=== PATIENT | female | born 1990 | race Caucasian/White ===

== ENCOUNTER 2016-11-19 10:34 | Inpatient (IN) | payer OTHER ==
[2016-11-19] MEDS ORDERED: Oxytocin/Lactated Ringers 10 UNIT/1,000 ML BAG IV SCH ×2 (11:45)
[2016-11-19] MEDS: Lactated Ringers 1,000 ML IV SCH ×2 (12:07→16:18)
--- NOTE | 2016-11-19 12:28 | PCM.LDHP ---
L&D History of Present Illness - General Date of Service: 11/19/16 Admit Problem/Dx: Patient Status Order with Admit Dx/Problem 11/19/16 10:46 Patient Status [ADT] Routine 11/19/16 11:32 Patient Status [ADT] Routine Admission Diagnosis/Problem Admission Diagnosis/Problem Source of Information: Patient History Limitations: Reports: No limitations - History of Present Illness Introduction:: 26-year-old, G. 14, P1-2-10 (including one ectopic)-2 . JOSE 12/03/2016 at estimated gestational age of 38 weeks zero days. History of gush of fluid or leaking fluid since 2230 hours on 11/18/2016 . GBS negative. Patient presented to labor and delivery for evaluation, and nature was positive for back ruptured at 1220 on 11/19/2016 at that time. Cervix 3 cm, 80% effaced, posterior, soft, zero station. Clear amnionic fluid. heart tones category one Location, : Reports: Abdomen, Lower back Quality: Reports: Dull Improves with: Reports: None Worsens with: Reports: None Associated Symptoms: Reports: N - Related Data Allergies/Adverse Reactions: Allergies Allergy/AdvReac Type Severity Reaction Status Date / Time codeine AdvReac Seizure Verified 11/19/16 11:37 hydrocodone [From Vicodin] AdvReac Seizure Verified 11/19/16 11:37 promethazine [From Phenergan] AdvReac Seizure Verified 11/19/16 11:37 Home Medications: Home Meds PNV95/Ferrous Fumarate/FA [ Tablet] 1 tab PO DAILY 11/19/16 [History] Past Medical History : 14 Para: 1 (07/23/09) H&P Review of Systems - Review of Systems: Review Of Systems: See Below General: Reports: no symptoms HEENT: Reports: no symptoms Pulmonary: Reports: No Symptoms Cardiovascular: Reports: no symptoms Gastrointestinal: Reports: No symptoms Genitourinary: Reports: no symptoms Musculoskeletal: Reports: no symptoms Skin: Reports: no symptoms Psychiatric: Reports: no symptoms Neurological: Reports: No Symptoms Hematologic/Lymphatic: Reports: no symptoms Immunologic: Reports: no symptoms L&D Exam - Exam Exam: See Below - Vital Signs Vital Signs: Last Vital Signs Temp 98.7 F 11/19/16 10:46 Pulse 87 11/19/16 10:46 Resp 20 11/19/16 10:46 BP 133/84 11/19/16 10:46 Pulse Ox Weight: 182 lb 6 oz - OB Specific Contraction Intensity: Mild (of the) movement: active heart tones: present heart tones per min: 135 Heart Rate (FHR) Variability: Moderate (6-25 bmp) Presentation: Vertex - Lee Score Lee Score Cervix Position: Posterior Lee Score Consistency: Soft Lee Score Effacement: >80% Lee Score Dilation: 3-4 cm Lee Score Infant's Station: -1 ,0 Lee Score Total: 9 - Exam General: alert, oriented HEENT: Hearing intact Neck: supple, trachea midline Lungs: Clear to auscultation, Normal respiratory effort Cardiovascular: regular rate, regular rhythm Abdomen: normal bowel sounds, soft Genitourinary: Normal external exam Extremities: normal inspection Skin: warm, dry, intact Psychiatric: alert, normal affect, normal mood - Patient Data Lab Results last 24 hrs: Laboratory Results - last 24 hr 11/19/16 11/19/16 Range/Units 10:55 11:45 WBC 15.70 H (3.98-10.04) K/mm3 RBC 3.74 L (3.98-5.22) M/mm3 Hgb 12.1 (11.2-15.7) gm/L Hct 36.1 (34.1-44.9) % MCV 96.5 H (79.4-94.8) fl MCH 32.4 H (25.6-32.2) pg MCHC 33.5 (32.2-35.5) g/dl RDW Std Deviation 44.9 (36.4-46.3) fL Plt Count 329 (182-369) K/mm3 MPV 10.0 (9.4-12.3) fl Membrane Rupture Positive H Result Diagrams: 11/19/16 11:45 - Problem List (1) 38 weeks gestation of SNOMED Code(s): 60011379 ICD Code: Z3A.38 - 38 WEEKS GESTATION OF Status: Acute Current Visit: Yes (2) Premature rupture of membranes SNOMED Code(s): 02829641 ICD Code: O42.90 - AMANDA ROM, 7TH0 BETW RUPT & ONST LABR, UNSP WEEKS OF GEST Status: Acute Current Visit: Yes Qualifiers: PROM onset of labor timing: onset of labor within 24 hours of rupture PROM gestational age: full term Qualified Code(s): O42.02 - Full-term premature rupture of membranes, onset of labor within 24 hours of rupture Problem List Initiated/Reviewed/Updated: No Orders Last 24hrs: Active Orders 24 hr Category Date Time Status Patient Status [ADT] Routine ADT 11/19/16 10:46 Active Patient Status [ADT] Routine ADT 11/19/16 11:32 Active Activity as Tolerated [RC] PFP Care 11/19/16 11:31 Active Communication Order [RC] ASDIRECTED Care 11/19/16 11:31 Active Non Stress Test [RC] PER UNIT ROUTINE Care 11/19/16 10:46 Active Notify Provider [RC] PFP Care 11/19/16 11:31 Active Notify Provider [RC] PRN Care 11/19/16 11:31 Active Vital Signs [RC] PER UNIT ROUTINE Care 11/19/16 10:46 Active Vital Signs [RC] PER UNIT ROUTINE Care 11/19/16 11:31 Active Clear Liquid Diet [DIET] Diet 11/19/16 Lunch Active TYPE AND SCREEN [BBK] Stat Lab 11/19/16 12:22 Ordered Lactated Ringers [Ringers, Lactated] 1,000 ml Med 11/19/16 11:45 Active IV ASDIRECTED Oxytocin/Lactated Ringers [Pitocin in LR 10 Units/1,000 Med 11/19/16 11:45 Active ML] 10 unit in 1,000 ml IV TITRATE Oxytocin/Lactated Ringers [Pitocin in LR 10 Units/1,000 Med 11/19/16 11:45 Active ML] 10 unit in 1,000 ml IV TITRATE PNV95/Ferrous Fumarate/FA [ Tablet] Med 11/20/16 09:00 Ordered 1 tab PO DAILY Electronic Heart Tones Ext w TOCO [WOMSER] Oth 11/19/16 11:31 Ordered Routine Electronic Heart Tones Internal [WOMSER] Per Unit Oth 11/19/16 11:31 Ordered Routine Peripheral IV Insertion Adult [OM.PC] Routine Oth 11/19/16 11:31 Ordered Resuscitation Status Routine Resus Stat 11/19/16 10:45 Ordered Medication Orders Lactated Ringer's (Ringers, Lactated) 1,000 mls @ 100 mls/hr IV ASDIRECTED DEBORAH Last Admin: 11/19/16 12:07 Dose: 100 mls/hr Oxytocin/Lactated Ringer's (Pitocin In Lr 10 Units/1,000 Ml) 10 unit in 1,000 mls @ 500 mls/hr IV TITRATE DEBORAH Oxytocin/Lactated Ringer's (Pitocin In Lr 10 Units/1,000 Ml) 10 unit in 1,000 mls @ 12 mls/hr IV TITRATE DEBORAH; 2 MUNITS/MIN PRN Reason: Protocol Last Admin: 11/19/16 12:08 Dose: 2 munits/min, 12 mls/hr Non-Formulary Medication (Pnv95/Ferrous Fumarate/Fa [ Tablet]) 1 tab PO DAILY DEBORAH
--- NOTE | 2016-11-19 14:22 | PCM.SN ---
- Free Text/Narrative Note: Cervix /soft/posterior/vtx 0/+1 Cat I FHR.
[2016-11-19] MEDS ORDERED: ePHEDrine 50 MG/ML SDV IVPUSH PRN (15:59)
[2016-11-19] MEDS ORDERED: diphenhydrAMINE 50 MG/ML SDV IVPUSH PRN (15:59)
[2016-11-19] MEDS ORDERED: fentaNYL 100 MCG/2 ML SDV EPIDUR PRN (15:59)
[2016-11-19] MEDS ORDERED: Bupivacaine/fentaNYL/NS 100 ML Bag EPIDUR SCH (16:00)
--- NOTE | 2016-11-19 16:27 | PCM.PREANE ---
Preanesthetic Assessment - Anesthesia/Transfusion/Family Hx Anesthesia History: Prior Anesthesia Without Reaction Family History of Anesthesia Reaction: No Transfusion History: No Prior Transfusion(s) - Review of Systems General: No Symptoms Pulmonary: No Symptoms Cardiovascular: No Symptoms Gastrointestinal: No symptoms Neurological: No Symptoms, Seizure (2005-grand mal -allergic reaction to meds) Other: Reports: None, Anxiety (usually on zoloft) - Physical Assessment O2 Sat by Pulse Oximetry: 100 Respiratory Rate: 20 Vital Signs: Last Vital Signs Temp 98.7 F 11/19/16 10:46 Pulse 87 11/19/16 10:46 Resp 20 11/19/16 10:46 BP 133/84 11/19/16 10:46 Pulse Ox Height: 6 ft Weight: 82.724 kg ASA Class: 2 Mental Status: Alert & Oriented x3 Airway Class: Mallampati = 1 Dentition: Reports: Normal Dentition Thyro-Mental Finger Breadths: 3 Mouth Opening Finger Breadths: 3 ROM/Head Extension: Full Lungs: Clear to auscultation, Normal respiratory effort Cardiovascular: Regular Rate, Regular Rhythm, No Murmurs - Lab Values: Laboratory Last Values WBC 15.70 K/mm3 (3.98-10.04) H 11/19/16 11:45 RBC 3.74 M/mm3 (3.98-5.22) L 11/19/16 11:45 Hgb 12.1 gm/L (11.2-15.7) 11/19/16 11:45 Hct 36.1 % (34.1-44.9) 11/19/16 11:45 MCV 96.5 fl (79.4-94.8) H 11/19/16 11:45 MCH 32.4 pg (25.6-32.2) H 11/19/16 11:45 MCHC 33.5 g/dl (32.2-35.5) 11/19/16 11:45 RDW Std Deviation 44.9 fL (36.4-46.3) 11/19/16 11:45 Plt Count 329 K/mm3 (182-369) 11/19/16 11:45 MPV 10.0 fl (9.4-12.3) 11/19/16 11:45 Membrane Rupture Positive H 11/19/16 10:55 Blood Type A POSITIVE 11/19/16 11:45 Gel Antibody Screen Negative 11/19/16 11:45 - Allergies Allergies/Adverse Reactions: Allergies Allergy/AdvReac Type Severity Reaction Status Date / Time codeine AdvReac Seizure Verified 11/19/16 11:37 hydrocodone [From Vicodin] AdvReac Seizure Verified 11/19/16 11:37 promethazine [From Phenergan] AdvReac Seizure Verified 11/19/16 11:37 - Blood Blood Available: No - Acknowledgements Anesthesia Type Planned: Epidural Pt an Appropriate Candidate for the Planned Anesthesia: Yes Alternatives and Risks of Anesthesia Discussed w Pt/Guardian: Yes Pt/Guardian Understands and Agrees with Anesthesia Plan: Yes PreAnesthesia Questionnaire Cardiovascular History: Reports: Other (see below) Other Cardiovascular History: SVT Respiratory History: Reports: Asthma (meds years ago- golf course [employer] indused) Gastrointestinal History: Reports: GERD, Other (see below) Other Gastrointestinal History: ulcer [employer] History: Reports: Ectopic , , Spontaneous , Other (see below) : 14 (39 weeks) Para: 2 Other OB/BYN History: spontaneous AB X10. History of PTL Neurological History: Reports: Headaches, chronic Psychiatric History: Reports: Anxiety, Depression Endocrine/Metabolic History: Reports: Hyperthyroidism - SUBSTANCE USE Smoking Status *Q: Current Every Day Smoker Tobacco Use Within Last Twelve Months: Cigarettes Second Hand Smoke Exposure: Yes Days Per Week of Alcohol Use: 0 Recreational Drug Use History: No - HOME MEDS Home Medications: Home Meds PNV95/Ferrous Fumarate/FA [ Tablet] 1 tab PO DAILY 11/19/16 [History] - CURRENT (IN HOUSE) MEDS Current Meds: Current Medications Diphenhydramine HCl (Benadryl) 25 mg IVPUSH Q6H PRN PRN Reason: pruritis Ephedrine Sulfate (Ephedrine Sulfate) 5 mg IVPUSH ASDIRECTED PRN PRN Reason: Hypotension Fentanyl (Sublimaze) 100 mcg EPIDUR Q3H PRN PRN Reason: Pain Last Admin: 11/19/16 16:21 Dose: 100 mcg Fentanyl/Bupivacaine HCl (Fentanyl/Bupivacaine/Ns 2 Mcg-0.125% 100 Ml) 100 ml EPIDUR ASDIRECTED DEBORAH Last Admin: 11/19/16 16:22 Dose: 100 ml Lactated Ringer's (Ringers, Lactated) 1,000 mls @ 100 mls/hr IV ASDIRECTED DEBORAH Last Admin: 11/19/16 16:18 Dose: 100 mls/hr Oxytocin/Lactated Ringer's (Pitocin In Lr 10 Units/1,000 Ml) 10 unit in 1,000 mls @ 500 mls/hr IV TITRATE DEBORAH Oxytocin/Lactated Ringer's (Pitocin In Lr 10 Units/1,000 Ml) 10 unit in 1,000 mls @ 12 mls/hr IV TITRATE DEBORAH; 2 MUNITS/MIN PRN Reason: Protocol Last Admin: 11/19/16 12:08 Dose: 2 munits/min, 12 mls/hr Prenat Multivit/[employer] Specialist/Iron/Folic Ac ( Plus Iron) 1 each PO BEDTIME DEBORAH
--- NOTE | 2016-11-19 17:24 | PCM.DEL ---
L & D Note - General Info Date of Service: 11/19/16 Mother's Due Date: 12/03/16 - Delivery Note Labor: spontaneous, augmented by ARM (Rupture of fore bag, clear fluid), augmented by oxytocin Delivery Outcome: Livebirth (Male live born, Saturday11/19/2018, at 1707 hours, RADHA. Nuchal cord x2 loose, weight 3110 g/6 pounds, 13.7 ounces, Apgars 8/9) Infant Delivery Method: Spontaneous Vaginal Delivery Delivery Mode: Spontaneous Type of Forceps Used: None Presentation: Left Occiput Anterior (RADHA) Nuchal cord: present (X2 loose, easily reduced) Prep: povidone-iodine (betadine Anesthesia Type: Epidural Amniotic Fluid Description: Clear Episiotomy Type: None Laceration: none Placenta: intact (1710 hours, and tacked, eccentric cord insertion, discarded), spontaneous Cord: 3 vessels Estimated blood loss: 250 Resuscitation needed: No : suctioned, bulb syringe, stimulated, warmed, blanket used, warmer used Provider: Donn Choe Score 1 min: 8 Score 5 min: 9 - Patient Data Vitals - most recent: Last Vital Signs Temp 98.7 F 11/19/16 10:46 Pulse 87 11/19/16 10:46 Resp 20 11/19/16 16:29 BP 133/84 11/19/16 10:46 Pulse Ox 100 11/19/16 16:29 Weight - most recent: 182 lb 6 oz Lab Results last 24 hrs: Laboratory Results - last 24 hr 11/19/16 11/19/16 11/19/16 Range/Units 10:55 11:45 11:45 WBC 15.70 H (3.98-10.04) K/mm3 RBC 3.74 L (3.98-5.22) M/mm3 Hgb 12.1 (11.2-15.7) gm/L Hct 36.1 (34.1-44.9) % MCV 96.5 H (79.4-94.8) fl MCH 32.4 H (25.6-32.2) pg MCHC 33.5 (32.2-35.5) g/dl RDW Std Deviation 44.9 (36.4-46.3) fL Plt Count 329 (182-369) K/mm3 MPV 10.0 (9.4-12.3) fl Membrane Rupture Positive H Blood Type A POSITIVE Gel Antibody Screen Negative Med Orders - Current: Current Medications Diphenhydramine HCl (Benadryl) 25 mg IVPUSH Q6H PRN PRN Reason: pruritis Ephedrine Sulfate (Ephedrine Sulfate) 5 mg IVPUSH ASDIRECTED PRN PRN Reason: Hypotension Fentanyl (Sublimaze) 100 mcg EPIDUR Q3H PRN PRN Reason: Pain Last Admin: 11/19/16 16:21 Dose: 100 mcg Fentanyl/Bupivacaine HCl (Fentanyl/Bupivacaine/Ns 2 Mcg-0.125% 100 Ml) 100 ml EPIDUR ASDIRECTED DEBORAH Last Admin: 11/19/16 16:22 Dose: 100 ml Lactated Ringer's (Ringers, Lactated) 1,000 mls @ 100 mls/hr IV ASDIRECTED DEBORAH Last Admin: 11/19/16 16:18 Dose: 100 mls/hr Oxytocin/Lactated Ringer's (Pitocin In Lr 10 Units/1,000 Ml) 10 unit in 1,000 mls @ 500 mls/hr IV TITRATE DEBORAH Oxytocin/Lactated Ringer's (Pitocin In Lr 10 Units/1,000 Ml) 10 unit in 1,000 mls @ 12 mls/hr IV TITRATE DEBORAH; 2 MUNITS/MIN PRN Reason: Protocol Last Admin: 11/19/16 12:08 Dose: 2 munits/min, 12 mls/hr Prenat Multivit/[place]/Iron/Folic Ac ( Plus Iron) 1 each PO BEDTIME DEBORAH - Problem List & Annotations (1) 38 weeks gestation of SNOMED Code(s): 05556773 Code(s): Z3A.38 - 38 WEEKS GESTATION OF Status: Acute Current Visit: Yes (2) Premature rupture of membranes SNOMED Code(s): 78337785 Code(s): O42.90 - AMANDA ROM, 7TH0 BETW RUPT & ONST LABR, UNSP WEEKS OF GEST Status: Acute Current Visit: Yes Qualifiers: PROM onset of labor timing: onset of labor within 24 hours of rupture PROM gestational age: full term Qualified Code(s): O42.02 - Full-term premature rupture of membranes, onset of labor within 24 hours of rupture (3) Nuchal cord without compression, delivered, current hospitalization SNOMED Code(s): 02246941 Code(s): O69.81X0 - LABOR AND DEL COMP BY CORD AROUND NECK, W/O COMPRSN, UNSP Status: Acute Current Visit: Yes - Problem List Review Problem List Initiated/Reviewed/Updated: No - My Orders Last 24 Hours: My Active Orders 11/19/16 10:45 Resuscitation Status Routine 11/19/16 10:46 Patient Status [ADT] Routine Non Stress Test [RC] PER UNIT ROUTINE Vital Signs [RC] PER UNIT ROUTINE 11/19/16 11:31 Activity as Tolerated [RC] PFP Communication Order [RC] ASDIRECTED Notify Provider [RC] PFP Notify Provider [RC] PRN Vital Signs [RC] PER UNIT ROUTINE Electronic Heart Tones Ext w TOCO [WOMSER] Routine Electronic Heart Tones Internal [WOMSER] Per Unit Routine Peripheral IV Insertion Adult [OM.PC] Routine 11/19/16 11:32 Patient Status [ADT] Routine 11/19/16 11:45 TYPE AND SCREEN [BBK] Stat Lactated Ringers [Ringers, Lactated] 1,000 ml IV ASDIRECTED Oxytocin/Lactated Ringers [Pitocin in LR 10 Units/1,000 ML] 10 unit in 1,000 ml IV TITRATE Oxytocin/Lactated Ringers [Pitocin in LR 10 Units/1,000 ML] 10 unit in 1,000 ml IV TITRATE 11/19/16 21:00 Vit with Ca/FA/Iron [ Plus Iron] 1 each PO BEDTIME 11/19/16 Lunch Clear Liquid Diet [DIET] - Plan Plan:: Spontaneous vaginal delivery. Epidural anesthesia, and no lacerations. Male live born 1707 hours, Saturday11/19/2018 3110 g/6 pounds, 13.7 ounces, Apgars 8/9. Nuchal cord x2
[2016-11-19] MEDS ORDERED: Docusate Sodium 100 MG Cap PO PRN (17:32)
[2016-11-19] MEDS ORDERED: Witch Hazel Medicated Pads 100/Jar TOP PRN (17:32)
[2016-11-19] MEDS ORDERED: Lanolin 100% Cream 7 GM Tube TOP PRN (17:32)
[2016-11-19] MEDS ORDERED: Benzocaine/Menthol 20%-0.5% Spray 56 GM Canister TOP PRN (17:32)
[2016-11-19] MEDS ORDERED: Acetaminophen 325 MG Tab PO PRN (17:32)
[2016-11-19] MEDS ORDERED: Simethicone 80 MG Tab.Chew PO PRN (17:32)
[2016-11-19] MEDS ORDERED: Prenatal Multivitamin with Calcium/Folic Acid/Iron Tab PO SCH (21:00)
[2016-11-19] MEDS: Ibuprofen 600 MG Tab PO PRN (22:22)
[2016-11-19] MEDS ORDERED: Bupivacaine 0.25% 10 ML SDV ONE (22:22)
[2016-11-20] MEDS: Ibuprofen 600 MG Tab PO PRN ×2 (04:17→10:57)
--- NOTE | 2016-11-20 08:11 | PCM48HPAN ---
Post Anesthesia Note - EVALUATION WITHIN 48HRS OF ANESTHETIC Vital Signs in Normal Range: Yes Patient Participated in Evaluation: No (Pt sleeping, nurse stated pt did have some light back pain last night) Respiratory Function Stable: Yes Airway Patent: Yes Cardiovascular Function Stable: Yes Hydration Status Stable: Yes Pain Control Satisfactory: Yes Nausea and Vomiting Control Satisfactory: Yes Mental Status Recovered: Yes
--- NOTE | 2016-11-20 09:35 | PCM.DCSUM1 ---
Discharge Summary - Hospital Course Free Text/Narrative:: [facility] LIVE L/D Delivery Note Patient Name: LUCIAN CLEARY Date of : 86 Patient Status: Inpatient Attending Provider: Donn Choe Date: 11/19/16 17:17 Initialization Date: 11/19/16 17:17 L & D Note - General Info Date of Service: 11/19/16 Mother's Due Date: 12/03/16 - Delivery Note Labor: spontaneous, augmented by ARM (Rupture of fore bag, clear fluid), augmented by oxytocin Delivery Outcome: Livebirth (Male live born, Saturday[birth year]19/2018, at 1707 hours, RADHA. Nuchal cord x2 loose, weight 3110 g/6 pounds, 13.7 ounces, Apgars 8/9) Delivery Method: Spontaneous Vaginal Delivery Infant Delivery Mode: Spontaneous Type of Forceps Used: None Presentation: Left Occiput Anterior (RADHA) Nuchal cord: present (X2 loose, easily reduced) Prep: povidone-iodine (betadine Anesthesia Type: Epidural Amniotic Fluid Description: Clear Episiotomy Type: None Laceration: none Placenta: intact (1710 hours, and tacked, eccentric cord insertion, discarded), spontaneous Cord: 3 vessels Estimated blood loss: 250 Resuscitation needed: No [place]: suctioned, bulb syringe, stimulated, warmed, blanket used, warmer used Provider: Donn Choe Score 1 min: 8 Score 5 min: 9 - Patient Data Vitals - most recent: Last Vital Signs Temp 98.7 F 11/19/16 10:46 Pulse 87 11/19/16 10:46 Resp 20 11/19/16 16:29 BP 133/84 11/19/16 10:46 Pulse Ox 100 11/19/16 16:29 Weight - most recent: 182 lb 6 oz Lab Results last 24 hrs: Laboratory Results - last 24 hr 11/19/16 11/19/16 11/19/16 Range/Units 10:55 11:45 11:45 WBC 15.70 H (3.98-10.04) K/mm3 RBC 3.74 L (3.98-5.22) M/mm3 Hgb 12.1 (11.2-15.7) gm/L Hct 36.1 (34.1-44.9) % MCV 96.5 H (79.4-94.8) fl MCH 32.4 H (25.6-32.2) pg MCHC 33.5 (32.2-35.5) g/dl RDW Std Deviation 44.9 (36.4-46.3) fL Plt Count 329 (182-369) K/mm3 MPV 10.0 (9.4-12.3) fl Membrane Rupture Positive H Blood Type A POSITIVE Gel Antibody Screen Negative Med Orders - Current: Current Medications Diphenhydramine HCl (Benadryl) 25 mg IVPUSH Q6H PRN PRN Reason: pruritis Ephedrine Sulfate (Ephedrine Sulfate) 5 mg IVPUSH ASDIRECTED PRN PRN Reason: Hypotension Fentanyl (Sublimaze) 100 mcg EPIDUR Q3H PRN PRN Reason: Pain Last Admin: 11/19/16 16:21 Dose: 100 mcg Fentanyl/Bupivacaine HCl (Fentanyl/Bupivacaine/Ns 2 Mcg-0.125% 100 Ml) 100 ml EPIDUR ASDIRECTED DEBORAH Last Admin: 11/19/16 16:22 Dose: 100 ml Lactated Ringer's (Ringers, Lactated) 1,000 mls @ 100 mls/hr IV ASDIRECTED DEBORAH Last Admin: 11/19/16 16:18 Dose: 100 mls/hr Oxytocin/Lactated Ringer's (Pitocin In Lr 10 Units/1,000 Ml) 10 unit in 1,000 mls @ 500 mls/hr IV TITRATE DEBORAH Oxytocin/Lactated Ringer's (Pitocin In Lr 10 Units/1,000 Ml) 10 unit in 1,000 mls @ 12 mls/hr IV TITRATE DEBORAH; 2 MUNITS/MIN PRN Reason: Protocol Last Admin: 11/19/16 12:08 Dose: 2 munits/min, 12 mls/hr Prenat Multivit/Norton/Iron/Folic Ac ( Plus Iron) 1 each PO BEDTIME DEBORAH - Problem List & Annotations (1) 38 weeks gestation of SNOMED Code(s): 04914278 Code(s): Z3A.38 - 38 WEEKS GESTATION OF Status: Acute Current Visit: Yes (2) Premature rupture of membranes SNOMED Code(s): 94917988 Code(s): O42.90 - AMANDA ROM, 7TH0 BETW RUPT & ONST LABR, UNSP WEEKS OF GEST Status: Acute Current Visit: Yes Qualifiers: PROM onset of labor timing: onset of labor within 24 hours of rupture PROM gestational age: full term Qualified Code(s): O42.02 - Full-term premature rupture of membranes, onset of labor within 24 hours of rupture (3) Nuchal cord without compression, delivered, current hospitalization SNOMED Code(s): 71852597 Code(s): O69.81X0 - LABOR AND DEL COMP BY CORD AROUND NECK, W/O COMPRSN, UNSP Status: Acute Current Visit: Yes - Problem List Review Problem List Initiated/Reviewed/Updated: No - My Orders Last 24 Hours: My Active Orders 11/19/16 10:45 Resuscitation Status Routine 11/19/16 10:46 Patient Status [ADT] Routine Non Stress Test [RC] PER UNIT ROUTINE Vital Signs [RC] PER UNIT ROUTINE 11/19/16 11:31 Activity as Tolerated [RC] PFP Communication Order [RC] ASDIRECTED Notify Provider [RC] PFP Notify Provider [RC] PRN Vital Signs [RC] PER UNIT ROUTINE Electronic Heart Tones Ext w TOCO [WOMSER] Routine Electronic Heart Tones Internal [WOMSER] Per Unit Routine Peripheral IV Insertion Adult [OM.PC] Routine 11/19/16 11:32 Patient Status [ADT] Routine 11/19/16 11:45 TYPE AND SCREEN [BBK] Stat Lactated Ringers [Ringers, Lactated] 1,000 ml IV ASDIRECTED Oxytocin/Lactated Ringers [Pitocin in LR 10 Units/1,000 ML] 10 unit in 1,000 ml IV TITRATE Oxytocin/Lactated Ringers [Pitocin in LR 10 Units/1,000 ML] 10 unit in 1,000 ml IV TITRATE 11/19/16 21:00 Vit with Ca/FA/Iron [ Plus Iron] 1 each PO BEDTIME 11/19/16 Lunch Clear Liquid Diet [DIET] - Plan Plan:: Spontaneous vaginal delivery. Epidural anesthesia, and no lacerations. Male live born 1707 hours, Saturday11[birth year]19/2018 3110 g/6 pounds, 13.7 ounces, Apgars 8/9. Nuchal cord x2 HPI Initial Comments: [facility] LIVE L/D Delivery Note Patient Name: LUCIAN CLEARY Date of : 86 Patient Status: Inpatient Attending Provider: Donn Choe Date: 11/19/16 17:17 Initialization Date: 11/19/16 17:17 L & D Note - General Info Date of Service: 11/19/16 Mother's Due Date: 12/03/16 - Delivery Note Labor: spontaneous, augmented by ARM (Rupture of fore bag, clear fluid), augmented by oxytocin Delivery Outcome: Livebirth (Male live born, Saturday[birth year]19/2018, at 1707 hours, RADHA. Nuchal cord x2 loose, weight 3110 g/6 pounds, 13.7 ounces, Apgars 8/9) Delivery Method: Spontaneous Vaginal Delivery Infant Delivery Mode: Spontaneous Type of Forceps Used: None Presentation: Left Occiput Anterior (RADHA) Nuchal cord: present (X2 loose, easily reduced) Prep: povidone-iodine (betadine Anesthesia Type: Epidural Amniotic Fluid Description: Clear Episiotomy Type: None Laceration: none Placenta: intact (1710 hours, and tacked, eccentric cord insertion, discarded), spontaneous Cord: 3 vessels Estimated blood loss: 250 Resuscitation needed: No : suctioned, bulb syringe, stimulated, warmed, blanket used, warmer used Provider: Donn Choe Score 1 min: 8 Score 5 min: 9 - Patient Data Vitals - most recent: Last Vital Signs Temp 98.7 F 11/19/16 10:46 Pulse 87 11/19/16 10:46 Resp 20 11/19/16 16:29 BP 133/84 11/19/16 10:46 Pulse Ox 100 11/19/16 16:29 Weight - most recent: 182 lb 6 oz Lab Results last 24 hrs: Laboratory Results - last 24 hr 11/19/16 11/19/16 11/19/16 Range/Units 10:55 11:45 11:45 WBC 15.70 H (3.98-10.04) K/mm3 RBC 3.74 L (3.98-5.22) M/mm3 Hgb 12.1 (11.2-15.7) gm/L Hct 36.1 (34.1-44.9) % MCV 96.5 H (79.4-94.8) fl MCH 32.4 H (25.6-32.2) pg MCHC 33.5 (32.2-35.5) g/dl RDW Std Deviation 44.9 (36.4-46.3) fL Plt Count 329 (182-369) K/mm3 MPV 10.0 (9.4-12.3) fl Membrane Rupture Positive H Blood Type A POSITIVE Gel Antibody Screen Negative Med Orders - Current: Current Medications Diphenhydramine HCl (Benadryl) 25 mg IVPUSH Q6H PRN PRN Reason: pruritis Ephedrine Sulfate (Ephedrine Sulfate) 5 mg IVPUSH ASDIRECTED PRN PRN Reason: Hypotension Fentanyl (Sublimaze) 100 mcg EPIDUR Q3H PRN PRN Reason: Pain Last Admin: 11/19/16 16:21 Dose: 100 mcg Fentanyl/Bupivacaine HCl (Fentanyl/Bupivacaine/Ns 2 Mcg-0.125% 100 Ml) 100 ml EPIDUR ASDIRECTED DEBORAH Last Admin: 11/19/16 16:22 Dose: 100 ml Lactated Ringer's (Ringers, Lactated) 1,000 mls @ 100 mls/hr IV ASDIRECTED DEBORAH Last Admin: 11/19/16 16:18 Dose: 100 mls/hr Oxytocin/Lactated Ringer's (Pitocin In Lr 10 Units/1,000 Ml) 10 unit in 1,000 mls @ 500 mls/hr IV TITRATE DEBORAH Oxytocin/Lactated Ringer's (Pitocin In Lr 10 Units/1,000 Ml) 10 unit in 1,000 mls @ 12 mls/hr IV TITRATE DEBORAH; 2 MUNITS/MIN PRN Reason: Protocol Last Admin: 11/19/16 12:08 Dose: 2 munits/min, 12 mls/hr Prenat Multivit/Norton/Iron/Folic Ac ( Plus Iron) 1 each PO BEDTIME DEBORAH - Problem List & Annotations (1) 38 weeks gestation of SNOMED Code(s): 04469945 Code(s): Z3A.38 - 38 WEEKS GESTATION OF Status: Acute Current Visit: Yes (2) Premature rupture of membranes SNOMED Code(s): 63968348 Code(s): O42.90 - AMANDA ROM, 7TH0 BETW RUPT & ONST LABR, UNSP WEEKS OF GEST Status: Acute Current Visit: Yes Qualifiers: PROM onset of labor timing: onset of labor within 24 hours of rupture PROM gestational age: full term Qualified Code(s): O42.02 - Full-term premature rupture of membranes, onset of labor within 24 hours of rupture (3) Nuchal cord without compression, delivered, current hospitalization SNOMED Code(s): 88803392 Code(s): O69.81X0 - LABOR AND DEL COMP BY CORD AROUND NECK, W/O COMPRSN, UNSP Status: Acute Current Visit: Yes - Problem List Review Problem List Initiated/Reviewed/Updated: No - My Orders Last 24 Hours: My Active Orders 11/19/16 10:45 Resuscitation Status Routine 11/19/16 10:46 Patient Status [ADT] Routine Non Stress Test [RC] PER UNIT ROUTINE Vital Signs [RC] PER UNIT ROUTINE 11/19/16 11:31 Activity as Tolerated [RC] PFP Communication Order [RC] ASDIRECTED Notify Provider [RC] PFP Notify Provider [RC] PRN Vital Signs [RC] PER UNIT ROUTINE Electronic Heart Tones Ext w TOCO [WOMSER] Routine Electronic Heart Tones Internal [WOMSER] Per Unit Routine Peripheral IV Insertion Adult [OM.PC] Routine 11/19/16 11:32 Patient Status [ADT] Routine 11/19/16 11:45 TYPE AND SCREEN [BBK] Stat Lactated Ringers [Ringers, Lactated] 1,000 ml IV ASDIRECTED Oxytocin/Lactated Ringers [Pitocin in LR 10 Units/1,000 ML] 10 unit in 1,000 ml IV TITRATE Oxytocin/Lactated Ringers [Pitocin in LR 10 Units/1,000 ML] 10 unit in 1,000 ml IV TITRATE 11/19/16 21:00 Vit with Ca/FA/Iron [ Plus Iron] 1 each PO BEDTIME 11/19/16 Lunch Clear Liquid Diet [DIET] - Plan Plan:: Spontaneous vaginal delivery. Epidural anesthesia, and no lacerations. Male live born 1707 hours, Saturday11/19[birth year]2016 3110 g/6 pounds, 13.7 ounces, Apgars 8/9. Nuchal cord x2 Brief History: [facility] LIVE . L/D Delivery Note. [facility]: [id number] Date of : Patient Status: Inpatient. Attending Provider: Donn Choeount Number: [id number]. Date: 11/19/16 17:17Initialization Date: 11/19/16 17:17. L & D Note. - General Info. Date of Service: 11/19/16. Mother's Due Date: 12/03/16. - Delivery Note. Labor: spontaneous, augmented by ARM (Rupture of fore bag, clear fluid), augmented by oxytocin. Delivery Outcome: Livebirth ( Male live born, Saturday11/19/2016, at 1707 hours, RADHA. Nuchal cord x2 loose, weight 3110 g/6 pounds, 13.7 ounces, Apgars 8/9). Infant Delivery Method: Spontaneous Vaginal Delivery. Infant Delivery Mode: Spontaneous. Type of Forceps Used: None. Presentation: Left Occiput Anterior (RADHA). Nuchal cord: present (X2 loose, easily reduced). Prep: povidone-iodine (betadine. Anesthesia Type: Epidural. Amniotic Fluid Description: Clear. Episiotomy Type : None. Laceration: none. Placenta: intact (1710 hours, and tacked, eccentric cord insertion, discarded), spontaneous. Cord: 3 vessels. Estimated blood loss : 250. Resuscitation needed: No. [place]: suctioned, bulb syringe, stimulated , warmed, blanket used, warmer used. Provider: Donn Choe. Score 1 min: 8. Score 5 min: 9. - Patient Data. Vitals - most recent: Last Vital Signs. Temp 98.7 F 11/19/16 10:46. Pulse 87 11/19/16 10: 46. Resp 20 11/19/16 16:29. BP 133/84 11/19/16 10:46. Pulse Ox 100 16:29. Weight - most recent: 182 lb 6 oz. Lab Results last 24 hrs: Laboratory Results - last 24 hr. 11/19/1704/17Range/Units. 10:5511: 4511:45. WBC 15.70 H (3.98-10.04) K/mm3. RBC 3.74 L (3.98-5.22) M/mm3. Hgb 12.1 (11.2-15.7) gm/L. Hct 36.1 (34.1-44.9) %. MCV 96.5 H (79.4-94.8) fl. MCH 32.4 H (25.6-32.2) pg. MCHC 33.5 (32.2-35.5) g/dl. RDW Std Deviation 44.9 (36.4-46.3) fL. Plt Count 329 (182-369) K/mm3. MPV 10.0 (9.4-12.3) fl. Membrane Rupture Positive H. Blood Type A POSITIVE. Gel Antibody Screen Negative. Med Orders - Current: Current Medications. Diphenhydramine HCl (Benadryl) 25 mg IVPUSH Q6H PRN. PRN Reason: pruritis. Ephedrine Sulfate (Ephedrine Sulfate) 5 mg IVPUSH ASDIRECTED PRN. PRN Reason: Hypotension. Fentanyl (Sublimaze) 100 mcg EPIDUR Q3H PRN. PRN Reason: Pain. Last Admin: 16:21 Dose: 100 mcg. Fentanyl/Bupivacaine HCl (Fentanyl/Bupivacaine/Ns 2 Mcg-0.125% 100 Ml) 100 ml EPIDUR ASDIRECTED DEBORAH. Last Admin: 11/19/16 16:22 Dose: 100 ml. Lactated Ringer's (Ringers, Lactated) 1,000 mls @ 100 mls/hr IV ASDIRECTED DEBORAH. Last Admin: 11/19/16 16:18 Dose: 100 mls/hr. Oxytocin/ Lactated Ringer's (Pitocin In Lr 10 Units/1,000 Ml) 10 unit in 1,000 mls @ 500 mls/hr IV TITRATE DEBORAH. Oxytocin/Lactated Ringer's (Pitocin In Lr 10 Units/1, 000 Ml) 10 unit in 1,000 mls @ 12 mls/hr IV TITRATE DEBORAH; 2 MUNITS/MIN. PRN Reason: Protocol. Last Admin: 11/19/16 12:08 Dose: 2 munits/min, 12 mls/hr. Prenat Multivit/Norton/Iron/Folic Ac ( Plus Iron) 1 each PO BEDTIME DEBORAH. - Problem List & Annotations. (1) 38 weeks gestation of . SNOMED Code(s): 32491944. Code(s): Z3A.38 - 38 WEEKS GESTATION OF Status: Acute Current Visit: Yes. (2) Premature rupture of membranes. SNOMED Code(s): 71171053. Code(s): O42.90 - AMANDA ROM, 7TH0 BETW RUPT & ONST LABR, UNSP WEEKS OF GEST Status: Acute Current Visit: Yes. Qualifiers: PROM onset of labor timing: onset of labor within 24 hours of rupture PROM gestational age: full term Qualified Code(s): O42.02 - Full-term premature rupture of membranes, onset of labor within 24 hours of rupture. (3) Nuchal cord without compression, delivered, current hospitalization. SNOMED Code(s): 06792692. Code(s): O69.81X0 - LABOR AND DEL COMP BY CORD AROUND NECK, W/O COMPRSN, UNSP Status: Acute Current Visit: Yes. - Problem List Review. Problem List Initiated/Reviewed/Updated: No. - My Orders. Last 24 Hours: My Active Orders. 11/19/16 10:45. Resuscitation Status Routine. 11/19/16 10:46. Patient Status [ADT] Routine. Non Stress Test [RC] PER UNIT ROUTINE. Vital Signs [RC] PER UNIT ROUTINE. 11/19/16 11:31. Activity as Tolerated [RC] PFP. Communication Order [RC] ASDIRECTED. Notify Provider [RC] PFP. Notify Provider [RC] PRN. Vital Signs [RC] PER UNIT ROUTINE. Electronic Heart Tones Ext w TOCO [WOMSER] Routine. Electronic Heart Tones Internal [ WOMSER] Per Unit Routine. Peripheral IV Insertion Adult [OM.PC] Routine. 11/19 11:32. Patient Status [ADT] Routine. 11/19/16 11:45. TYPE AND SCREEN [BBK ] Stat. Lactated Ringers [Ringers, Lactated] 1,000 ml IV ASDIRECTED. Oxytocin/ Lactated Ringers [Pitocin in LR 10 Units/1,000 ML] 10 unit in 1,000 ml IV TITRATE. Oxytocin/Lactated Ringers [Pitocin in LR 10 Units/1,000 ML] 10 unit in 1,000 ml IV TITRATE. 11/19/16 21:00. Vit with Ca/FA/Iron [ Plus Iron] 1 each PO BEDTIME. 11/19/16 Lunch. Clear Liquid Diet [ DIET]. - Plan. Plan:: Spontaneous vaginal delivery. Epidural anesthesia, and no lacerations. Male live born 1707 hours, Saturday11/19/2016 3110 g/6 pounds , 13.7 ounces, Apgars 8/9. Nuchal cord x2 - Discharge Data Discharge Date: 11/20/16 (945) Discharge Disposition: Home, Self-Care 01 Condition: Good - Discharge Diagnosis/Problem(s) (1) 38 weeks gestation of SNOMED Code(s): 81793978 ICD Code: Z3A.38 - 38 WEEKS GESTATION OF Status: Acute Current Visit: Yes (2) Premature rupture of membranes SNOMED Code(s): 23016201 ICD Code: O42.90 - AMANDA ROM, 7TH0 BETW RUPT & ONST LABR, UNSP WEEKS OF GEST Status: Acute Current Visit: Yes Qualifiers: PROM onset of labor timing: onset of labor within 24 hours of rupture PROM gestational age: full term Qualified Code(s): O42.02 - Full-term premature rupture of membranes, onset of labor within 24 hours of rupture (3) Nuchal cord without compression, delivered, current hospitalization SNOMED Code(s): 07226944 ICD Code: O69.81X0 - LABOR AND DEL COMP BY CORD AROUND NECK, W/O COMPRSN, UNSP Status: Acute Current Visit: Yes - Patient Summary/Data Complications: none Consults: none Hospital Course: uneventful - Patient Instructions Diet: Heart Healthy Diet Driving: Do Not Drive (x48 hours) Showering/Bathing: May Shower Notify Provider of: Fever, Increased Pain, Swelling and Redness, Drainage, Nausea and/or Vomiting - Discharge Plan Home Medications: Home Meds PNV95/Ferrous Fumarate/FA [ Tablet] 1 tab PO DAILY 11/19/16 [History] Acetaminophen [Tylenol] 650 mg PO Q6H PRN #0 tablet 11/20/16 [Rx] Benzocaine/Menthol [Dermoplast Pain Relief Amelia] 1 spray TOP ASDIRECTED PRN #0 canister 11/20/16 [Rx] Docusate Sodium [Colace] 100 mg PO BID PRN #0 cap 11/20/16 [Rx] Ibuprofen [IJD: Ibuprofen] 200 - 600 mg PO Q6H PRN #0 tablet 11/20/16 [Rx] Simethicone 80 mg PO Q4H PRN #0 tab.chew 11/20/16 [Rx] Keesha Saeed [Tucks] 1 pad TOP ASDIRECTED PRN #0 pad 11/20/16 [Rx] Referrals: Donn Choe MD [Physician] - (6 weeks) - Discharge Summary/Plan Comment DC Time >30 min.: No - Patient Data Vitals - Most Recent: Last Vital Signs Temp 98.1 F 11/20/16 04:16 Pulse 70 11/20/16 04:16 Resp 16 11/20/16 04:16 BP 124/72 11/20/16 04:16 Pulse Ox 100 11/20/16 04:16 Weight - Most Recent: 182 lb 6 oz Lab Results - Last 24 hrs: Laboratory Results - last 24 hr 11/19/16 11/19/16 11/19/16 Range/Units 10:55 11:45 11:45 WBC 15.70 H (3.98-10.04) K/mm3 RBC 3.74 L (3.98-5.22) M/mm3 Hgb 12.1 (11.2-15.7) gm/L Hct 36.1 (34.1-44.9) % MCV 96.5 H (79.4-94.8) fl MCH 32.4 H (25.6-32.2) pg MCHC 33.5 (32.2-35.5) g/dl RDW Std Deviation 44.9 (36.4-46.3) fL Plt Count 329 (182-369) K/mm3 MPV 10.0 (9.4-12.3) fl Neut % (Auto) (34.0-71.1) % Lymph % (Auto) (19.3-51.7) % Ellis % (Auto) (4.7-12.5) % Eos % (Auto) (0.7-5.8) Baso % (Auto) (0.1-1.2) % Neut # (Auto) (1.56-6.13) K/mm3 Lymph # (Auto) (1.18-3.74) K/mm3 Ellis # (Auto) (0.24-0.36) K/mm3 Eos # (Auto) (0.04-0.36) K/mm3 Baso # (Auto) (0.01-0.08) K/mm3 Membrane Rupture Positive H Blood Type A POSITIVE Gel Antibody Screen Negative 11/20/16 Range/Units 06:20 WBC 14.95 H (3.98-10.04) K/mm3 RBC 3.37 L (3.98-5.22) M/mm3 Hgb 10.9 L (11.2-15.7) gm/L Hct 32.7 L (34.1-44.9) % MCV 97.0 H (79.4-94.8) fl MCH 32.3 H (25.6-32.2) pg MCHC 33.3 (32.2-35.5) g/dl RDW Std Deviation 45.6 (36.4-46.3) fL Plt Count 286 (182-369) K/mm3 MPV 9.8 (9.4-12.3) fl Neut % (Auto) 75.0 H (34.0-71.1) % Lymph % (Auto) 14.8 L (19.3-51.7) % Ellis % (Auto) 8.4 (4.7-12.5) % Eos % (Auto) 1.1 (0.7-5.8) Baso % (Auto) 0.2 (0.1-1.2) % Neut # (Auto) 11.22 H (1.56-6.13) K/mm3 Lymph # (Auto) 2.21 (1.18-3.74) K/mm3 Ellis # (Auto) 1.25 H (0.24-0.36) K/mm3 Eos # (Auto) 0.16 (0.04-0.36) K/mm3 Baso # (Auto) 0.03 (0.01-0.08) K/mm3 Membrane Rupture Blood Type Gel Antibody Screen Med Orders - Current: Current Medications Acetaminophen (Tylenol) 650 mg PO Q4H PRN PRN Reason: mild pain or fever Benzocaine/Menthol (Dermoplast Pain Relief Amelia) 0 gm TOP ASDIRECTED PRN PRN Reason: Perineal Comfort Measure Docusate Sodium (Colace) 100 mg PO BID PRN PRN Reason: Constipation Emollient Ointment (Lansinoh Hpa) 0 gm TOP ASDIRECTED PRN PRN Reason: Sore Nipples Ibuprofen (Motrin) 600 mg PO Q4H PRN PRN Reason: Mild pain or fever Last Admin: 11/20/16 04:17 Dose: 600 mg Prenat Multivit/Malt Roaster/Iron/Folic Ac ( Plus Iron) 1 each PO BEDTIME DEBORAH Simethicone (Simethicone) 80 mg PO Q4H PRN PRN Reason: Gas Witch Darlin (Tucks) 1 pad TOP ASDIRECTED PRN PRN Reason: Hemorrhoid pain Discontinued Medications Bupivacaine HCl (Sensorcaine-Mpf 0.25%) 10 ml .[facility] ONE Stop: 11/19/16 22:23 Diphenhydramine HCl (Benadryl) 25 mg IVPUSH Q6H PRN PRN Reason: pruritis Ephedrine Sulfate (Ephedrine Sulfate) 5 mg IVPUSH ASDIRECTED PRN PRN Reason: Hypotension Fentanyl (Sublimaze) 100 mcg EPIDUR Q3H PRN PRN Reason: Pain Last Admin: 11/19/16 16:21 Dose: 100 mcg Fentanyl/Bupivacaine HCl (Fentanyl/Bupivacaine/Ns 2 Mcg-0.125% 100 Ml) 100 ml EPIDUR ASDIRECTED DEBORAH Last Admin: 11/19/16 16:22 Dose: 100 ml Lactated Ringer's (Ringers, Lactated) 1,000 mls @ 100 mls/hr IV ASDIRECTED DEBORAH Last Admin: 11/19/16 16:18 Dose: 100 mls/hr Oxytocin/Lactated Ringer's (Pitocin In Lr 10 Units/1,000 Ml) 10 unit in 1,000 mls @ 500 mls/hr IV TITRATE DEBORAH Oxytocin/Lactated Ringer's (Pitocin In Lr 10 Units/1,000 Ml) 10 unit in 1,000 mls @ 12 mls/hr IV TITRATE DEBORAH; 2 MUNITS/MIN PRN Reason: Protocol Last Admin: 11/19/16 12:08 Dose: 2 munits/min, 12 mls/hr *Q Meaningful Use (DIS) - VTE *Q VTE Criteria *Q: - Stroke *Q Stroke Criteria *Q: - AMI *Q AMI Criteria *Q:
[2016-11-20 11:54] VITALS: BP 115/76
== END 2016-11-20 20:12 | disposition home or self-care (01) | DRG 775 ==
LOC: JD.OBCHECK 10:34 → JD.OB 10:38 → JD.OBCHECK 11:37 → JD.OB 11:38 → OBSVTOIN 17:07
PROVIDERS: ADMIT Obstetrics & Gynecology; ATTEND Obstetrics & Gynecology
PROC: 10E0XZZ Delivery of Products of Conception, External Approach (ICD-10-PCS; principal; 2016-11-19)
PROC: 00HU33Z Insertion of Infusion Device into Spinal Canal, Percutaneous Approach (ICD-10-PCS; 2016-11-19)
PROC: 3E0R3CZ (ICD-10-PCS; 2016-11-19)
DX: O42.02 Full-term premature rupture of membranes, onset of labor within 24 hours of rupture (principal); O69.81X0 Labor and delivery complicated by cord around neck, without compression, not applicable or unspecified; Z3A.38 38 weeks gestation of pregnancy; Z37.0 Single live birth; Z88.8 Allergy status to other drugs, medicaments and biological substances
CPT/HCPCS: 36415; 84112; 85025; 85027; 86850; 86900; 86901; A9270-GY; J2590; J3010; J7120

== ENCOUNTER 2018-09-08 10:11 | Inpatient (IN) | payer BC ==
[2018-09-08] MEDS ORDERED: Sodium Chloride 0.9% 10 ML Syringe FLUSH PRN (10:41)
[2018-09-08] MEDS ORDERED: Oxytocin/Lactated Ringers 10 UNIT/1,000 ML BAG IV SCH ×2 (10:45)
[2018-09-08] MEDS: Lactated Ringers 1,000 ML IV SCH ×2 (10:50→17:06)
--- NOTE | 2018-09-08 12:01 | PCM.LDHP ---
L&D History of Present Illness - General Date of Service: 09/08/18 Admit Problem/Dx: Patient Status Order with Admit Dx/Problem 09/08/18 10:41 Patient Status [ADT] Routine Admission Diagnosis/Problem Admission Diagnosis/Problem Source of Information: Patient History Limitations: Reports: No Limitations - History of Present Illness Introduction:: 28-year-old G 15 P2 111-3 (1 ectopic ) JOSE 09/14/18 presented to labor and delivery after having been seen in the clinic at estimated gestational age of 39 weeks and 1 day complaining of contractions every 8 minutes for the past 24-36 hours. Cervix at that time was 2-3 cm dilated 50% effaced, soft, posterior , vertex -2. At 1151 hrs. reexamine cervix is 3-4 cm dilated, 70% effaced, soft, posterior, vertex -1. Amniotomy performed clear fluid. Category 1 heart rate. GBS negative 02/26/18 blood type A positive antibody screen negative hemoglobin hematocrit 12.8 /38.3 platelets 400,000, rubella immune, serology nonreactive, urine culture lactobacillus 10,000 colony forming units normal urogenital alan, hepatitis B surface antigen negative HIV negative GC and chlamydia probe negative 06/19/18 hemoglobin/hematocrit 11.4/34.5 platelets 355,001 hour OB glucose screen 100 serology nonreactive. 08/18/18 group B strep negative. Plan labor and delivery. Improves with: Reports: None Worsens with: Reports: None Associated Symptoms: Reports: N - Related Data Allergies/Adverse Reactions: Allergies Allergy/AdvReac Type Severity Reaction Status Date / Time codeine AdvReac Seizure Verified 11/19/16 11:37 hydrocodone [From Vicodin] AdvReac Seizure Verified 11/19/16 11:37 promethazine [From Phenergan] AdvReac Seizure Verified 11/19/16 11:37 Home Medications: Home Meds PNV95/Ferrous Fumarate/FA [ Tablet] 1 tab PO DAILY 11/19/16 [History] Acetaminophen [Tylenol] 650 mg PO Q6H PRN #0 tablet 11/20/16 [Rx] Benzocaine/Menthol [Dermoplast Pain Relief [place]] 1 spray TOP ASDIRECTED PRN #0 canister 11/20/16 [Rx] Docusate Sodium [Colace] 100 mg PO BID PRN #0 cap 11/20/16 [Rx] Ibuprofen [IJD: Ibuprofen] 200 - 600 mg PO Q6H PRN #0 tablet 11/20/16 [Rx] Simethicone 80 mg PO Q4H PRN #0 tab.chew 11/20/16 [Rx] Keesha Saeed [Tucks] 1 pad TOP ASDIRECTED PRN #0 pad 11/20/16 [Rx] Past Medical History Cardiovascular History: Reports: Other (See Below) Other Cardiovascular History: SVT Respiratory History: Reports: Asthma Gastrointestinal History: Reports: GERD, Other (See Below) Other Gastrointestinal History: ulcer 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 History of PTL Neurological History: Reports: Headaches, Chronic Psychiatric History: Reports: Anxiety, Depression Endocrine/Metabolic History: Reports: Hyperthyroidism Oncologic (Cancer) History: Reports: Other (See Below) Other Oncologic History: CERVICAL LEAP PROCEDURE - Past Surgical History Cardiovascular Surgical History: Reports: None Respiratory Surgical History: Reports: None GI Surgical History: Reports: None Endocrine Surgical History: Reports: None Social & Family History - Family History Family Medical History: Noncontributory - Tobacco Use Smoking Status *Q: Never Smoker Second Hand Smoke Exposure: No - Caffeine Use Caffeine Use: Reports: None - Recreational Drug Use Recreational Drug Use: No H&P Review of Systems - Review of Systems: Review Of Systems: See Below General: Reports: No Symptoms HEENT: Reports: No Symptoms Pulmonary: Reports: No Symptoms Cardiovascular: Reports: No Symptoms Gastrointestinal: Reports: No Symptoms Genitourinary: Reports: No Symptoms Musculoskeletal: Reports: No Symptoms Skin: Reports: No Symptoms Psychiatric: Reports: No Symptoms Neurological: Reports: No Symptoms Hematologic/Lymphatic: Reports: No Symptoms Immunologic: Reports: No Symptoms L&D Exam - Exam Exam: See Below - Vital Signs Vital Signs: Last Vital Signs Temp 98.8 F 09/08/18 10:48 Pulse 96 09/08/18 10:48 Resp 18 09/08/18 10:48 BP 115/71 09/08/18 10:48 Pulse Ox 99 09/08/18 10:48 Weight: 184 lb - OB Specific Fundal Height In cm: 39 Contraction Duration (sec): 60 Contraction Frequency (min): 2-3 Contraction Intensity: Moderate Movement: Active Heart Tones: Present Heart Tones per Min: 120 Heart Rate (FHR) Variability: Moderate (6-25 bmp) Presentation: Vertex Estimated Weight: 7.5 - Lee Score Lee Score Cervix Position: Posterior Lee Score Consistency: Soft Lee Score Effacement: 51-70% Lee Score Dilation: 3-4 cm Lee Score 's Station: -1 ,0 Lee Score Total: 8 - Exam General: Alert, Oriented HEENT: Conjunctiva Clear, Mucosa Moist & [place], Pupils Equal Neck: Supple, Trachea Midline Lungs: Clear to Auscultation, Normal Respiratory Effort Cardiovascular: Regular Rate, Regular Rhythm GI/Abdominal Exam: Normal Bowel Sounds, Soft, Non-Tender Genitourinary: Normal external exam Extremities: Normal Inspection, Normal Range of Motion, Non-Tender, No Pedal Edema, Normal Capillary Refill Skin: Warm, Dry, Intact Neurological: Reflexes Equal Bilateral Psychiatric: Alert, Normal Affect, Normal Mood - Patient Data Lab Results Last 24 hrs: Laboratory Results - last 24 hr 09/08/18 Range/Units 11:10 WBC 15.03 H (3.98-10.04) K/mm3 RBC 3.64 L (3.98-5.22) M/mm3 Hgb 11.3 (11.2-15.7) gm/L Hct 34.6 (34.1-44.9) % MCV 95.1 H (79.4-94.8) fl MCH 31.0 (25.6-32.2) pg MCHC 32.7 (32.2-35.5) g/dl RDW Std Deviation 44.8 (36.4-46.3) fL Plt Count 354 (182-369) K/mm3 MPV 9.5 (9.4-12.3) fl Neut % (Auto) 77.5 H (34.0-71.1) % Lymph % (Auto) 13.4 L (19.3-51.7) % [place] % (Auto) 7.2 (4.7-12.5) % Eos % (Auto) 0.5 L (0.7-5.8) Baso % (Auto) 0.3 (0.1-1.2) % Neut # (Auto) 11.65 H (1.56-6.13) K/mm3 Lymph # (Auto) 2.02 (1.18-3.74) K/mm3 [place] # (Auto) 1.08 H (0.24-0.36) K/mm3 Eos # (Auto) 0.08 (0.04-0.36) K/mm3 Baso # (Auto) 0.04 (0.01-0.08) K/mm3 Manual Slide Review Normal smear Result Diagrams: 09/08/18 11:10 - Problem List (1) 39 weeks gestation of SNOMED Code(s): 78670804 ICD Code: Z3A.39 - 39 WEEKS GESTATION OF Status: Acute Current Visit: Yes Problem List Initiated/Reviewed/Updated: No Orders Last 24hrs: Active Orders 24 hr Category Date Time Status Patient Status [ADT] Routine ADT 09/08/18 10:41 Active Activity as Tolerated [RC] PFP Care 09/08/18 10:41 Active Communication Order [RC] ASDIRECTED Care 09/08/18 10:41 Active Heart Tones [RC] ASDIRECTED Care 09/08/18 10:41 Active Non Stress Test [RC] PER UNIT ROUTINE Care 09/08/18 10:41 Active Notify Provider [RC] PFP Care 09/08/18 10:41 Active Notify Provider [RC] PRN Care 09/08/18 10:41 Active Peripheral IV Care [RC] . DIRECTED Care 09/08/18 10:41 Active Vital Signs [RC] PER UNIT ROUTINE Care 09/08/18 10:41 Active Regular Diet [DIET] Diet 09/08/18 Lunch Active RAPID PLASMA REAGIN,RPR [CHEM] Routine Lab 09/08/18 10:41 Ordered TYPE AND SCREEN [BBK] Stat Lab 09/08/18 10:41 Ordered Lactated Ringers [Ringers, Lactated] 1,000 ml Med 09/08/18 10:45 Active IV ASDIRECTED Oxytocin/Lactated Ringers [Pitocin in LR 10 Units/1,000 Med 09/08/18 10:45 Active ML] 10 unit in 1,000 ml IV .CONTINUOUS Oxytocin/Lactated Ringers [Pitocin in LR 10 Units/1,000 Med 09/08/18 10:45 Active ML] 10 unit in 1,000 ml IV TITRATE Sodium Chloride 0.9% [Saline Flush] Med 09/08/18 10:41 Active 10 ml FLUSH ASDIRECTED PRN Electronic Heart Tones Ext w TOCO [WOMSER] Oth 09/08/18 10:41 Ordered Routine Electronic Heart Tones Internal [WOMSER] Per Unit Oth 09/08/18 10:41 Ordered Routine Peripheral IV Insertion Adult [OM.PC] Routine Oth 09/08/18 10:41 Ordered Resuscitation Status Routine Resus Stat 09/08/18 10:41 Ordered Medication Orders Lactated Ringer's (Ringers, Lactated) 1,000 mls @ 100 mls/hr IV ASDIRECTED DEBORAH Last Admin: 09/08/18 10:50 Dose: 100 mls/hr Oxytocin/Lactated Ringer's (Pitocin In Lr 10 Units/1,000 Ml) 10 unit in 1,000 mls @ 12 mls/hr IV TITRATE DEBORAH; Protocol Last Admin: 09/08/18 11:31 Dose: 2 munits/min, 12 mls/hr Oxytocin/Lactated Ringer's (Pitocin In Lr 10 Units/1,000 Ml) 10 unit in 1,000 mls @ 500 mls/hr IV .CONTINUOUS DEBORAH Sodium Chloride (Saline Flush) 10 ml FLUSH ASDIRECTED PRN PRN Reason: Keep Vein Open Assessment/Plan Comment:: Plan labor and delivery
[2018-09-08] MEDS ORDERED: ePHEDrine 50 MG/ML SDV IVPUSH PRN (14:14)
[2018-09-08] MEDS ORDERED: fentaNYL 100 MCG/2 ML SDV EPIDUR PRN (14:14)
[2018-09-08] MEDS ORDERED: Phenylephrine 1 MG in Sodium Chloride 0.9% 10 ML IV SCH (14:15)
[2018-09-08] MEDS ORDERED: fentaNYL/Bupivacaine-NS 2 MCG/ML-0.125%/PF 100 ML Bag EP SCH (14:15)
--- NOTE | 2018-09-08 14:23 | PCM.PREANE ---
Preanesthetic Assessment - Anesthesia/Transfusion/Family Hx Anesthesia History: Prior Anesthesia Without Reaction Family History of Anesthesia Reaction: No Transfusion History: No Prior Transfusion(s) Intubation History: Unknown - Review of Systems General: No Symptoms Pulmonary: No Symptoms (Asthma-last inhaler used one month ago.) Cardiovascular: No Symptoms (History of SVT-last episode a few years ago.) Gastrointestinal: No Symptoms (GERD) Neurological: No Symptoms (scoliosis), Headache, Seizure (with meds: vicodin, promethazine, codeine) Other: Reports: Depression, Anxiety - Physical Assessment NPO Status Date: 09/08/18 NPO Status Time: 14:30 Pulse: 96 O2 Sat by Pulse Oximetry: 99 Respiratory Rate: 18 Blood Pressure: 115/71 Temperature: 37.1 C Vital Signs: Last Vital Signs Temp 37.1 C 09/08/18 10:48 Pulse 96 09/08/18 10:48 Resp 18 09/08/18 10:48 BP 115/71 09/08/18 10:48 Pulse Ox 99 09/08/18 10:48 Height: 1.78 m Weight: 83.461 kg ASA Class: 2 Mental Status: Alert & Oriented x3 Airway Class: Mallampati = 2 Dentition: Reports: Normal Dentition, Caries Thyro-Mental Finger Breadths: 3 Mouth Opening Finger Breadths: 3 ROM/Head Extension: Full Lungs: Clear to Auscultation, Normal Respiratory Effort Cardiovascular: Regular Rate, Regular Rhythm, No Murmurs - Lab Values: Laboratory Last Values WBC 15.03 K/mm3 (3.98-10.04) H 09/08/18 11:10 RBC 3.64 M/mm3 (3.98-5.22) L 09/08/18 11:10 Hgb 11.3 gm/L (11.2-15.7) 09/08/18 11:10 Hct 34.6 % (34.1-44.9) 09/08/18 11:10 MCV 95.1 fl (79.4-94.8) H 09/08/18 11:10 MCH 31.0 pg (25.6-32.2) 09/08/18 11:10 MCHC 32.7 g/dl (32.2-35.5) 09/08/18 11:10 RDW Std Deviation 44.8 fL (36.4-46.3) 09/08/18 11:10 Plt Count 354 K/mm3 (182-369) 09/08/18 11:10 MPV 9.5 fl (9.4-12.3) 09/08/18 11:10 Neut % (Auto) 77.5 % (34.0-71.1) H 09/08/18 11:10 Lymph % (Auto) 13.4 % (19.3-51.7) L 09/08/18 11:10 [place] % (Auto) 7.2 % (4.7-12.5) 09/08/18 11:10 Eos % (Auto) 0.5 (0.7-5.8) L 09/08/18 11:10 Baso % (Auto) 0.3 % (0.1-1.2) 09/08/18 11:10 Neut # (Auto) 11.65 K/mm3 (1.56-6.13) H 09/08/18 11:10 Lymph # (Auto) 2.02 K/mm3 (1.18-3.74) 09/08/18 11:10 [place] # (Auto) 1.08 K/mm3 (0.24-0.36) H 09/08/18 11:10 Eos # (Auto) 0.08 K/mm3 (0.04-0.36) 09/08/18 11:10 Baso # (Auto) 0.04 K/mm3 (0.01-0.08) 09/08/18 11:10 Manual Slide Review Normal smear 09/08/18 11:10 Blood Type A POSITIVE 09/08/18 11:10 Gel Antibody Screen Negative 09/08/18 11:10 Above labs reviewed and noted and within acceptable ranges to proceed with scheduled procedure. - Allergies Allergies/Adverse Reactions: Allergies Allergy/AdvReac Type Severity Reaction Status Date / Time codeine AdvReac Seizure Verified 11/19/16 11:37 hydrocodone [From Vicodin] AdvReac Seizure Verified 11/19/16 11:37 promethazine [From Phenergan] AdvReac Seizure Verified 11/19/16 11:37 - Anesthesia Plan Pre-Op Medication Ordered: None - Acknowledgements Anesthesia Type Planned: Epidural Pt an Appropriate Candidate for the Planned Anesthesia: Yes Alternatives and Risks of Anesthesia Discussed w Pt/Guardian: Yes Pt/Guardian Understands and Agrees with Anesthesia Plan: Yes PreAnesthesia Questionnaire Cardiovascular History: Reports: Other (See Below) Other Cardiovascular History: SVT Respiratory History: Reports: Asthma Gastrointestinal History: Reports: GERD, Other (See Below) Other Gastrointestinal History: ulcer 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 History of PTL Neurological History: Reports: Headaches, Chronic Psychiatric History: Reports: Anxiety, Depression Endocrine/Metabolic History: Reports: Hyperthyroidism Oncologic (Cancer) History: Reports: Other (See Below) Other Oncologic History: CERVICAL LEAP PROCEDURE - Past Surgical History Cardiovascular Surgical History: Reports: None Respiratory Surgical History: Reports: None GI Surgical History: Reports: None Endocrine Surgical History: Reports: None - SUBSTANCE USE Smoking Status *Q: Never Smoker Second Hand Smoke Exposure: No Recreational Drug Use History: No - HOME MEDS Home Medications: Home Meds PNV95/Ferrous Fumarate/FA [ Tablet] 1 tab PO DAILY 11/19/16 [History] Acetaminophen [Tylenol] 650 mg PO Q6H PRN #0 tablet 11/20/16 [Rx] Benzocaine/Menthol [Dermoplast Pain Relief [place]] 1 spray TOP ASDIRECTED PRN #0 canister 11/20/16 [Rx] Docusate Sodium [Colace] 100 mg PO BID PRN #0 cap 11/20/16 [Rx] Ibuprofen [IJD: Ibuprofen] 200 - 600 mg PO Q6H PRN #0 tablet 11/20/16 [Rx] Simethicone 80 mg PO Q4H PRN #0 tab.chew 11/20/16 [Rx] Witch Darlin [Tucks] 1 pad TOP ASDIRECTED PRN #0 pad 11/20/16 [Rx] - CURRENT (IN HOUSE) MEDS Current Meds: Current Medications Ephedrine Sulfate (Ephedrine Sulfate) 5 mg IVPUSH ASDIRECTED PRN PRN Reason: Hypotension Fentanyl (Sublimaze) 100 mcg EPIDUR Q3H PRN PRN Reason: Pain Fentanyl/Bupivacaine HCl (Yewlbnba-Jryhc-Yu 2 Mcg/Ml-0.125%) 100 ml EP ASDIRECTED DEBORAH Lactated Ringer's (Ringers, Lactated) 1,000 mls @ 100 mls/hr IV ASDIRECTED DEBORAH Last Admin: 09/08/18 10:50 Dose: 100 mls/hr Oxytocin/Lactated Ringer's (Pitocin In Lr 10 Units/1,000 Ml) 10 unit in 1,000 mls @ 12 mls/hr IV TITRATE DEBORAH; Protocol Last Titration: 09/08/18 13:41 Dose: 6 munits/min, 36 mls/hr Oxytocin/Lactated Ringer's (Pitocin In Lr 10 Units/1,000 Ml) 10 unit in 1,000 mls @ 500 mls/hr IV .CONTINUOUS DEBORAH Phenylephrine HCl 1 mg/ Sodium (Chloride) 10.1 mls @ 1 mls/sec IV TITRATE DEBORAH; Protocol Sodium Chloride (Saline Flush) 10 ml FLUSH ASDIRECTED PRN PRN Reason: Keep Vein Open
--- NOTE | 2018-09-08 15:49 | PCM.SN ---
- Free Text/Narrative Note: Cervix is 7 cm dilated, 100% effaced, soft, posterior, vertex at +2. Category 1 heart rate with accelerations
--- NOTE | 2018-09-08 17:15 | PCM.SN ---
- Free Text/Narrative Note: Cervix stretches to 9 cm with contraction, 100% effaced, soft, posterior to mid- position, vertex at +1-2, Epidural in place, cat i FHR.
--- NOTE | 2018-09-08 17:51 | PCM.SN ---
- Free Text/Narrative Note: At 1745 cervix stretches to 9, 100 % effaced, soft, posterior, vertex +1-2. Cat I FHR, Pitocin 14 miu/min. Good pain relief with epidural.
--- NOTE | 2018-09-08 19:25 | PCM.DEL ---
L & D Note - General Info Date of Service: 09/08/18 Mother's Due Date: 09/14/18 - Delivery Note Labor: Spontaneous, Augmented by ARM, Augmented by Oxytocin Delivery Outcome: Livebirth (Male liveborn Saturday09/08/18 at 1910 hrs. 30/5/90 grams 7 pounds 14.6 ounces Apgars 7/8 UZAIR no nuchal cord) Delivery Method: Spontaneous Vaginal Delivery-Single Delivery Mode: Spontaneous Presentation: Right Occiput Anterior (UZAIR) Nuchal Cord: None Prep: Povidone-Iodine (Betadine Anesthesia Type: Epidural Amniotic Fluid Description: Clear Episiotomy Type: None Laceration: None Placenta: Intact, Spontaneous (Saturday09/08/18 and 1911 hrs. intact eccentric cord insertion examined discarded) Resuscitation Needed: No [place]: Suctioned, Bulb Syringe, Stimulated, Warmed, [place] Used, Warmer Used Provider: Donn Choe Score 1 min: 7 Score 5 min: 8 - General Info Date of Service: 09/08/18 Admission Dx/Problem (Free Text): Patient Status Order with Admit Dx/Problem 09/08/18 10:41 Patient Status [ADT] Routine Admission Diagnosis/Problem Admission Diagnosis/Problem Functional Status: Reports: Pain Controlled - Review of Systems General: Reports: No Symptoms HEENT: Reports: No Symptoms Pulmonary: Reports: No Symptoms Cardiovascular: Reports: No Symptoms Gastrointestinal: Reports: No Symptoms Genitourinary: Reports: No Symptoms Musculoskeletal: Reports: No Symptoms Skin: Reports: No Symptoms Neurological: Reports: No Symptoms Psychiatric: Reports: No Symptoms - Patient Data Vitals - Most Recent: Last Vital Signs Temp 98.8 F 09/08/18 14:27 Pulse 96 09/08/18 14:27 Resp 18 09/08/18 14:27 BP 115/71 09/08/18 14:27 Pulse Ox 99 09/08/18 14:27 Weight - Most Recent: 184 lb I&O - Last 24 Hours: Intake & Output 09/08/18 09/08/18 09/08/18 06:59 14:59 22:59 Intake Total 0 Balance 0 Lab Results Last 24 Hours: Laboratory Results - last 24 hr 09/08/18 09/08/18 Range/Units 11:10 11:10 WBC 15.03 H (3.98-10.04) K/mm3 RBC 3.64 L (3.98-5.22) M/mm3 Hgb 11.3 (11.2-15.7) gm/L Hct 34.6 (34.1-44.9) % MCV 95.1 H (79.4-94.8) fl MCH 31.0 (25.6-32.2) pg MCHC 32.7 (32.2-35.5) g/dl RDW Std Deviation 44.8 (36.4-46.3) fL Plt Count 354 (182-369) K/mm3 MPV 9.5 (9.4-12.3) fl Neut % (Auto) 77.5 H (34.0-71.1) % Lymph % (Auto) 13.4 L (19.3-51.7) % [place] % (Auto) 7.2 (4.7-12.5) % Eos % (Auto) 0.5 L (0.7-5.8) Baso % (Auto) 0.3 (0.1-1.2) % Neut # (Auto) 11.65 H (1.56-6.13) K/mm3 Lymph # (Auto) 2.02 (1.18-3.74) K/mm3 [place] # (Auto) 1.08 H (0.24-0.36) K/mm3 Eos # (Auto) 0.08 (0.04-0.36) K/mm3 Baso # (Auto) 0.04 (0.01-0.08) K/mm3 Manual Slide Review Normal smear Blood Type A POSITIVE Gel Antibody Screen Negative Med Orders - Current: Current Medications Ephedrine Sulfate (Ephedrine Sulfate) 5 mg IVPUSH ASDIRECTED PRN PRN Reason: Hypotension Fentanyl (Sublimaze) 100 mcg EPIDUR Q3H PRN PRN Reason: Pain Last Admin: 09/08/18 16:45 Dose: 100 mcg Fentanyl/Bupivacaine HCl (Tbslclpb-Fmsqn-Qf 2 Mcg/Ml-0.125%) 100 ml EP ASDIRECTED DEBORAH Last Admin: 09/08/18 16:44 Dose: 100 ml Lactated Ringer's (Ringers, Lactated) 1,000 mls @ 100 mls/hr IV ASDIRECTED DEBORAH Last Admin: 09/08/18 17:06 Dose: 100 mls/hr Oxytocin/Lactated Ringer's (Pitocin In Lr 10 Units/1,000 Ml) 10 unit in 1,000 mls @ 12 mls/hr IV TITRATE DEBORAH; Protocol Last Titration: 09/08/18 17:40 Dose: 14 munits/min, 84 mls/hr Oxytocin/Lactated Ringer's (Pitocin In Lr 10 Units/1,000 Ml) 10 unit in 1,000 mls @ 500 mls/hr IV .CONTINUOUS DEBORAH Phenylephrine HCl 1 mg/ Sodium (Chloride) 10.1 mls @ 1 mls/sec IV TITRATE DEBORAH; Protocol Sodium Chloride (Saline Flush) 10 ml FLUSH ASDIRECTED PRN PRN Reason: Keep Vein Open - Exam General: Alert, Oriented HEENT: Pupils Equal, Mucous Membr. Moist/[place] Lungs: Clear to Auscultation, Normal Respiratory Effort Cardiovascular: Regular Rate, Regular Rhythm GI/Abdominal Exam: Normal Bowel Sounds (Female) Exam: Normal External Exam Extremities: Normal Inspection, Normal Range of Motion, Non-Tender, No Pedal Edema, Normal Capillary Refill Skin: Warm, Dry, Intact Psy/Mental Status: Alert, Normal Affect, Normal Mood - Problem List & Annotations (1) 39 weeks gestation of SNOMED Code(s): 67604381 Code(s): Z3A.39 - 39 WEEKS GESTATION OF Status: Acute Current Visit: Yes (2) Normal delivery SNOMED Code(s): 50796200, 838399676 Code(s): O80 - ENCOUNTER FOR FULL-TERM UNCOMPLICATED DELIVERY Status: Acute Current Visit: Yes - Problem List Review Problem List Initiated/Reviewed/Updated: No - My Orders Last 24 Hours: My Active Orders 09/08/18 10:41 Patient Status [ADT] Routine Activity as Tolerated [RC] PFP Communication Order [RC] ASDIRECTED Heart Tones [RC] ASDIRECTED Non Stress Test [RC] PER UNIT ROUTINE Notify Provider [RC] PFP Notify Provider [RC] PRN Peripheral IV Care [RC] . DIRECTED Vital Signs [RC] PER UNIT ROUTINE RAPID PLASMA REAGIN,RPR [CHEM] Routine Sodium Chloride 0.9% [Saline Flush] 10 ml FLUSH ASDIRECTED PRN Electronic Heart Tones Ext w TOCO [WOMSER] Routine Electronic Heart Tones Internal [WOMSER] Per Unit Routine Peripheral IV Insertion Adult [OM.PC] Routine Resuscitation Status Routine 09/08/18 10:45 Lactated Ringers [Ringers, Lactated] 1,000 ml IV ASDIRECTED Oxytocin/Lactated Ringers [Pitocin in LR 10 Units/1,000 ML] 10 unit in 1,000 ml IV .CONTINUOUS Oxytocin/Lactated Ringers [Pitocin in LR 10 Units/1,000 ML] 10 unit in 1,000 ml IV TITRATE 09/08/18 Lunch Regular Diet [DIET] - Plan Plan:: Plan labor and delivery
[2018-09-08] MEDS ORDERED: Docusate Sodium 100 MG Cap PO PRN (19:27)
[2018-09-08] MEDS ORDERED: Witch Hazel Medicated Pads 100/Jar TOP PRN (19:27)
[2018-09-08] MEDS ORDERED: Acetaminophen 325 MG Tab PO PRN (19:27)
[2018-09-08] MEDS ORDERED: Benzocaine/Menthol 20%-0.5% Spray 56 GM Canister TOP PRN (19:27)
[2018-09-08] MEDS ORDERED: Lanolin 100% Cream 7 GM Tube TOP PRN (19:27)
[2018-09-08] MEDS ORDERED: Bupivacaine 0.25% 10 ML SDV ONE (22:00)
[2018-09-08] MEDS ORDERED: Lidocaine 1.5% with EPINEPHrine 1:200,000 5 ML Amp ONE (22:00)
[2018-09-09] MEDS: Ibuprofen 600 MG Tab PO PRN ×3 (07:57→21:12)
--- NOTE | 2018-09-09 08:26 | PCM48HPAN ---
Post Anesthesia Note - EVALUATION WITHIN 48HRS OF ANESTHETIC Vital Signs in Normal Range: Yes Patient Participated in Evaluation: Yes Respiratory Function Stable: Yes Airway Patent: Yes Cardiovascular Function Stable: Yes Hydration Status Stable: Yes Pain Control Satisfactory: Yes Nausea and Vomiting Control Satisfactory: Yes Mental Status Recovered: Yes - COMMENTS/OBSERVATIONS Free Text/Narrative:: Patient denies any headaches, residual numbness/tingling to LE, or back pain. Doing well resting in bed.
--- NOTE | 2018-09-09 11:23 | PCM.SN ---
- Free Text/Narrative Note: day 1 Afebrile, no heavy vaginal bleeding. Uterus involuting normally. No leg cramping. Probably home tomorrow.
[2018-09-10] MEDS: Ibuprofen 600 MG Tab PO PRN (08:01)
--- NOTE | 2018-09-10 09:05 | PCM.DCSUM1 ---
Discharge Summary - Hospital Course Free Text/Narrative:: [facility] LIVE L/D Delivery Note Patient Name: LUCIAN PHILLIPS Date of : 86 Patient Status: Inpatient Attending Provider: Donn Choe Date: 09/08/18 19:22 Initialization Date: 09/08/18 19:22 L & D Note - General Info Date of Service: 09/08/18 Mother's Due Date: 09/14/18 - Delivery Note Labor: Spontaneous, Augmented by ARM, Augmented by Oxytocin Delivery Outcome: Livebirth (Male liveborn Saturday09/08/18 at 1910 hrs. 30/5/90 grams 7 pounds 14.6 ounces Apgars 7/8 UZAIR no nuchal cord) Delivery Method: Spontaneous Vaginal Delivery-Single Infant Delivery Mode: Spontaneous Presentation: Right Occiput Anterior (UZAIR) Nuchal Cord: None Prep: Povidone-Iodine (Betadine Anesthesia Type: Epidural Amniotic Fluid Description: Clear Episiotomy Type: None Laceration: None Placenta: Intact, Spontaneous (Saturday09/08/18 and 191 hrs. intact eccentric cord insertion examined discarded) Resuscitation Needed: No Lutz: Suctioned, Bulb Syringe, Stimulated, Warmed, Gilbert Used, Warmer Used Provider: Donn Choe Score 1 min: 7 Score 5 min: 8 - General Info Date of Service: 09/08/18 Admission Dx/Problem (Free Text): Patient Status Order with Admit Dx/Problem 09/08/18 10:41 Patient Status [ADT] Routine Admission Diagnosis/Problem Admission Diagnosis/Problem Functional Status: Reports: Pain Controlled - Review of Systems General: Reports: No Symptoms HEENT: Reports: No Symptoms Pulmonary: Reports: No Symptoms Cardiovascular: Reports: No Symptoms Gastrointestinal: Reports: No Symptoms Genitourinary: Reports: No Symptoms Musculoskeletal: Reports: No Symptoms Skin: Reports: No Symptoms Neurological: Reports: No Symptoms Psychiatric: Reports: No Symptoms - Patient Data Vitals - Most Recent: Last Vital Signs Temp 98.8 F 09/08/18 14:27 Pulse 96 09/08/18 14:27 Resp 18 09/08/18 14:27 BP 115/71 09/08/18 14:27 Pulse Ox 99 09/08/18 14:27 Weight - Most Recent: 184 lb I&O - Last 24 Hours: Intake & Output 09/08/18 09/08/18 09/08/18 06:59 14:59 22:59 Intake Total 0 Balance 0 Lab Results Last 24 Hours: Laboratory Results - last 24 hr 09/08/18 09/08/18 Range/Units 11:10 11:10 WBC 15.03 H (3.98-10.04) K/mm3 RBC 3.64 L (3.98-5.22) M/mm3 Hgb 11.3 (11.2-15.7) gm/L Hct 34.6 (34.1-44.9) % MCV 95.1 H (79.4-94.8) fl MCH 31.0 (25.6-32.2) pg MCHC 32.7 (32.2-35.5) g/dl RDW Std Deviation 44.8 (36.4-46.3) fL Plt Count 354 (182-369) K/mm3 MPV 9.5 (9.4-12.3) fl Neut % (Auto) 77.5 H (34.0-71.1) % Lymph % (Auto) 13.4 L (19.3-51.7) % [place] % (Auto) 7.2 (4.7-12.5) % Eos % (Auto) 0.5 L (0.7-5.8) Baso % (Auto) 0.3 (0.1-1.2) % Neut # (Auto) 11.65 H (1.56-6.13) K/mm3 Lymph # (Auto) 2.02 (1.18-3.74) K/mm3 [place] # (Auto) 1.08 H (0.24-0.36) K/mm3 Eos # (Auto) 0.08 (0.04-0.36) K/mm3 Baso # (Auto) 0.04 (0.01-0.08) K/mm3 Manual Slide Review Normal smear Blood Type A POSITIVE Gel Antibody Screen Negative Med Orders - Current: Current Medications Ephedrine Sulfate (Ephedrine Sulfate) 5 mg IVPUSH ASDIRECTED PRN PRN Reason: Hypotension Fentanyl (Sublimaze) 100 mcg EPIDUR Q3H PRN PRN Reason: Pain Last Admin: 09/08/18 16:45 Dose: 100 mcg Fentanyl/Bupivacaine HCl (Ndwhvthi-Cvxmn-Xc 2 Mcg/Ml-0.125%) 100 ml EP ASDIRECTED DEBORAH Last Admin: 09/08/18 16:44 Dose: 100 ml Lactated Ringer's (Ringers, Lactated) 1,000 mls @ 100 mls/hr IV ASDIRECTED DEBORAH Last Admin: 09/08/18 17:06 Dose: 100 mls/hr Oxytocin/Lactated Ringer's (Pitocin In Lr 10 Units/1,000 Ml) 10 unit in 1,000 mls @ 12 mls/hr IV TITRATE DEBORAH; Protocol Last Titration: 09/08/18 17:40 Dose: 14 munits/min, 84 mls/hr Oxytocin/Lactated Ringer's (Pitocin In Lr 10 Units/1,000 Ml) 10 unit in 1,000 mls @ 500 mls/hr IV .CONTINUOUS DEBORAH Phenylephrine HCl 1 mg/ Sodium (Chloride) 10.1 mls @ 1 mls/sec IV TITRATE DEBORAH; Protocol Sodium Chloride (Saline Flush) 10 ml FLUSH ASDIRECTED PRN PRN Reason: Keep Vein Open - Exam General: Alert, Oriented HEENT: Pupils Equal, Mucous Membr. Moist/[place] Lungs: Clear to Auscultation, Normal Respiratory Effort Cardiovascular: Regular Rate, Regular Rhythm GI/Abdominal Exam: Normal Bowel Sounds (Female) Exam: Normal External Exam Extremities: Normal Inspection, Normal Range of Motion, Non-Tender, No Pedal Edema, Normal Capillary Refill Skin: Warm, Dry, Intact Psy/Mental Status: Alert, Normal Affect, Normal Mood - Problem List & Annotations (1) 39 weeks gestation of SNOMED Code(s): 63098551 Code(s): Z3A.39 - 39 WEEKS GESTATION OF Status: Acute Current Visit: Yes (2) Normal delivery SNOMED Code(s): 17215370, 295343082 Code(s): O80 - ENCOUNTER FOR FULL-TERM UNCOMPLICATED DELIVERY Status: Acute Current Visit: Yes - Problem List Review Problem List Initiated/Reviewed/Updated: No - My Orders Last 24 Hours: My Active Orders 09/08/18 10:41 Patient Status [ADT] Routine Activity as Tolerated [RC] PFP Communication Order [RC] ASDIRECTED Heart Tones [RC] ASDIRECTED Non Stress Test [RC] PER UNIT ROUTINE Notify Provider [RC] PFP Notify Provider [RC] PRN Peripheral IV Care [RC] . DIRECTED Vital Signs [RC] PER UNIT ROUTINE RAPID PLASMA REAGIN,RPR [CHEM] Routine Sodium Chloride 0.9% [Saline Flush] 10 ml FLUSH ASDIRECTED PRN Electronic Heart Tones Ext w TOCO [WOMSER] Routine Electronic Heart Tones Internal [WOMSER] Per Unit Routine Peripheral IV Insertion Adult [OM.PC] Routine Resuscitation Status Routine 09/08/18 10:45 Lactated Ringers [Ringers, Lactated] 1,000 ml IV ASDIRECTED Oxytocin/Lactated Ringers [Pitocin in LR 10 Units/1,000 ML] 10 unit in 1,000 ml IV .CONTINUOUS Oxytocin/Lactated Ringers [Pitocin in LR 10 Units/1,000 ML] 10 unit in 1,000 ml IV TITRATE 09/08/18 Lunch Regular Diet [DIET] - Plan Plan:: Plan labor and delivery HPI Initial Comments: [facility] LIVE L/D Delivery Note Patient Name: LUCIAN PHILLIPS Date of : 86 Patient Status: Inpatient Attending Provider: Donn Choe Date: 09/08/18 19:22 Initialization Date: 09/08/18 19:22 L & D Note - General Info Date of Service: 09/08/18 Mother's Due Date: 09/14/18 - Delivery Note Labor: Spontaneous, Augmented by ARM, Augmented by Oxytocin Delivery Outcome: Livebirth (Male liveborn Saturday09/08/18 at 1910 hrs. 30/5/90 grams 7 pounds 14.6 ounces Apgars 7/8 UZAIR no nuchal cord) Delivery Method: Spontaneous Vaginal Delivery-Single Infant Delivery Mode: Spontaneous Presentation: Right Occiput Anterior (UZAIR) Nuchal Cord: None Prep: Povidone-Iodine (Betadine Anesthesia Type: Epidural Amniotic Fluid Description: Clear Episiotomy Type: None Laceration: None Placenta: Intact, Spontaneous (Saturday09/08/18 and 1912 hrs. intact eccentric cord insertion examined discarded) Resuscitation Needed: No Lutz: Suctioned, Bulb Syringe, Stimulated, Warmed, Gilbert Used, Warmer Used Provider: Donn Choe Score 1 min: 7 Score 5 min: 8 - General Info Date of Service: 09/08/18 Admission Dx/Problem (Free Text): Patient Status Order with Admit Dx/Problem 09/08/18 10:41 Patient Status [ADT] Routine Admission Diagnosis/Problem Admission Diagnosis/Problem Functional Status: Reports: Pain Controlled - Review of Systems General: Reports: No Symptoms HEENT: Reports: No Symptoms Pulmonary: Reports: No Symptoms Cardiovascular: Reports: No Symptoms Gastrointestinal: Reports: No Symptoms Genitourinary: Reports: No Symptoms Musculoskeletal: Reports: No Symptoms Skin: Reports: No Symptoms Neurological: Reports: No Symptoms Psychiatric: Reports: No Symptoms - Patient Data Vitals - Most Recent: Last Vital Signs Temp 98.8 F 09/08/18 14:27 Pulse 96 09/08/18 14:27 Resp 18 09/08/18 14:27 BP 115/71 09/08/18 14:27 Pulse Ox 99 09/08/18 14:27 Weight - Most Recent: 184 lb I&O - Last 24 Hours: Intake & Output 09/08/18 09/08/18 09/08/18 06:59 14:59 22:59 Intake Total 0 Balance 0 Lab Results Last 24 Hours: Laboratory Results - last 24 hr 09/08/18 09/08/18 Range/Units 11:10 11:10 WBC 15.03 H (3.98-10.04) K/mm3 RBC 3.64 L (3.98-5.22) M/mm3 Hgb 11.3 (11.2-15.7) gm/L Hct 34.6 (34.1-44.9) % MCV 95.1 H (79.4-94.8) fl MCH 31.0 (25.6-32.2) pg MCHC 32.7 (32.2-35.5) g/dl RDW Std Deviation 44.8 (36.4-46.3) fL Plt Count 354 (182-369) K/mm3 MPV 9.5 (9.4-12.3) fl Neut % (Auto) 77.5 H (34.0-71.1) % Lymph % (Auto) 13.4 L (19.3-51.7) % [place] % (Auto) 7.2 (4.7-12.5) % Eos % (Auto) 0.5 L (0.7-5.8) Baso % (Auto) 0.3 (0.1-1.2) % Neut # (Auto) 11.65 H (1.56-6.13) K/mm3 Lymph # (Auto) 2.02 (1.18-3.74) K/mm3 [place] # (Auto) 1.08 H (0.24-0.36) K/mm3 Eos # (Auto) 0.08 (0.04-0.36) K/mm3 Baso # (Auto) 0.04 (0.01-0.08) K/mm3 Manual Slide Review Normal smear Blood Type A POSITIVE Gel Antibody Screen Negative Med Orders - Current: Current Medications Ephedrine Sulfate (Ephedrine Sulfate) 5 mg IVPUSH ASDIRECTED PRN PRN Reason: Hypotension Fentanyl (Sublimaze) 100 mcg EPIDUR Q3H PRN PRN Reason: Pain Last Admin: 09/08/18 16:45 Dose: 100 mcg Fentanyl/Bupivacaine HCl (Cgmmuveb-Lflpq-Sv 2 Mcg/Ml-0.125%) 100 ml EP ASDIRECTED DEBORAH Last Admin: 09/08/18 16:44 Dose: 100 ml Lactated Ringer's (Ringers, Lactated) 1,000 mls @ 100 mls/hr IV ASDIRECTED DEBORAH Last Admin: 09/08/18 17:06 Dose: 100 mls/hr Oxytocin/Lactated Ringer's (Pitocin In Lr 10 Units/1,000 Ml) 10 unit in 1,000 mls @ 12 mls/hr IV TITRATE DEBORAH; Protocol Last Titration: 09/08/18 17:40 Dose: 14 munits/min, 84 mls/hr Oxytocin/Lactated Ringer's (Pitocin In Lr 10 Units/1,000 Ml) 10 unit in 1,000 mls @ 500 mls/hr IV .CONTINUOUS DEBORAH Phenylephrine HCl 1 mg/ Sodium (Chloride) 10.1 mls @ 1 mls/sec IV TITRATE DEBORAH; Protocol Sodium Chloride (Saline Flush) 10 ml FLUSH ASDIRECTED PRN PRN Reason: Keep Vein Open - Exam General: Alert, Oriented HEENT: Pupils Equal, Mucous Membr. Moist/[place] Lungs: Clear to Auscultation, Normal Respiratory Effort Cardiovascular: Regular Rate, Regular Rhythm GI/Abdominal Exam: Normal Bowel Sounds (Female) Exam: Normal External Exam Extremities: Normal Inspection, Normal Range of Motion, Non-Tender, No Pedal Edema, Normal Capillary Refill Skin: Warm, Dry, Intact Psy/Mental Status: Alert, Normal Affect, Normal Mood - Problem List & Annotations (1) 39 weeks gestation of SNOMED Code(s): 84265194 Code(s): Z3A.39 - 39 WEEKS GESTATION OF Status: Acute Current Visit: Yes (2) Normal delivery SNOMED Code(s): 68583309, 733610460 Code(s): O80 - ENCOUNTER FOR FULL-TERM UNCOMPLICATED DELIVERY Status: Acute Current Visit: Yes - Problem List Review Problem List Initiated/Reviewed/Updated: No - My Orders Last 24 Hours: My Active Orders 09/08/18 10:41 Patient Status [ADT] Routine Activity as Tolerated [RC] PFP Communication Order [RC] ASDIRECTED Heart Tones [RC] ASDIRECTED Non Stress Test [RC] PER UNIT ROUTINE Notify Provider [RC] PFP Notify Provider [RC] PRN Peripheral IV Care [RC] . DIRECTED Vital Signs [RC] PER UNIT ROUTINE RAPID PLASMA REAGIN,RPR [CHEM] Routine Sodium Chloride 0.9% [Saline Flush] 10 ml FLUSH ASDIRECTED PRN Electronic Heart Tones Ext w TOCO [WOMSER] Routine Electronic Heart Tones Internal [WOMSER] Per Unit Routine Peripheral IV Insertion Adult [OM.PC] Routine Resuscitation Status Routine 09/08/18 10:45 Lactated Ringers [Ringers, Lactated] 1,000 ml IV ASDIRECTED Oxytocin/Lactated Ringers [Pitocin in LR 10 Units/1,000 ML] 10 unit in 1,000 ml IV .CONTINUOUS Oxytocin/Lactated Ringers [Pitocin in LR 10 Units/1,000 ML] 10 unit in 1,000 ml IV TITRATE 09/08/18 Lunch Regular Diet [DIET] - Plan Plan:: Plan labor and delivery Brief History: [facility] LIVE . L/D Delivery Note. [facility]: [id number]. Date of : Patient Status: Inpatient. [facility] [id number]. Date: 09/08/18 19:22Initialization Date: 09/08/18 19:22. L & D Note. - General Info. Date of Service: 09/08/18. Mother's Due Date: 09/14/18. - Delivery Note. Labor: Spontaneous, Augmented by ARM, Augmented by Oxytocin. Delivery Outcome: Livebirth (Male liveborn Saturday09/08/18 at 1910 hrs. 30/5/90 grams 7 pounds 14.6 ounces Apgars 7/8 UZAIR no nuchal cord). Infant Delivery Method: Spontaneous Vaginal Delivery-Single. Infant Delivery Mode: Spontaneous. Presentation: Right Occiput Anterior (UZAIR). Nuchal Cord: None. Prep: Povidone-Iodine (Betadine. Anesthesia Type: Epidural. Amniotic Fluid Description: Clear. Episiotomy Type: None. Laceration: None. Placenta: Intact, Spontaneous (Saturday09/08/18 and 1912 hrs. intact eccentric cord insertion examined discarded). Resuscitation Needed: No. : Suctioned, Bulb Syringe, Stimulated, Warmed, Gilbert Used, Warmer Used. Provider : Donn Choe. Score 1 min: 7. Score 5 min: 8. - General Info. Date of Service: 09/08/18. Admission Dx/Problem (Free Text): Patient Status Order with Admit Dx/Problem. 09/08/18 10:41. Patient Status [ADT] Routine. Admission Diagnosis/Problem. Admission Diagnosis/Problem . Functional Status: Reports: Pain Controlled. - Review of Systems. General: Reports: No Symptoms. HEENT: Reports: No Symptoms. Pulmonary: Reports : No Symptoms. Cardiovascular: Reports: No Symptoms. Gastrointestinal: Reports : No Symptoms. Genitourinary: Reports: No Symptoms. Musculoskeletal: Reports: No Symptoms. Skin: Reports: No Symptoms. Neurological: Reports: No Symptoms. Psychiatric: Reports: No Symptoms. - Patient Data. Vitals - Most Recent: Last Vital Signs. Temp 98.8 F 09/08/18 14:27. Pulse 96 09/08/18 14:27. Resp 09/08/18 14:27. BP 115/71 09/08/18 14:27. Pulse Ox 99 09/08/18 14: 27. Weight - Most Recent: 184 lb. I&O - Last 24 Hours: Intake & Output. . 06:5914:5922:59. Intake Total0. Balance0. Lab Results Last 24 Hours: Laboratory Results - last 24 hr. 09/08/1901Range/ Units. 11:1011:10. WBC 15.03 H (3.98-10.04) K/mm3. RBC 3.64 L (3.98-5.22) M /mm3. Hgb 11.3 (11.2-15.7) gm/L. Hct 34.6 (34.1-44.9) %. MCV 95.1 H (79.4- 94.8) fl. MCH 31.0 (25.6-32.2) pg. MCHC 32.7 (32.2-35.5) g/dl. RDW Std Deviation 44.8 (36.4-46.3) fL. Plt Count 354 (182-369) K/mm3. MPV 9.5 (9.4- 12.3) fl. Neut % (Auto) 77.5 H (34.0-71.1) %. Lymph % (Auto) 13.4 L (19.3- 51.7) %. [place] % (Auto) 7.2 (4.7-12.5) %. Eos % (Auto) 0.5 L (0.7-5.8). Baso % (Auto) 0.3 (0.1-1.2) %. Neut # (Auto) 11.65 H (1.56-6.13) K/mm3. Lymph # (Auto) 2.02 (1.18-3.74) K/mm3. [place] # (Auto) 1.08 H (0.24-0.36) K/ mm3. Eos # (Auto) 0.08 (0.04-0.36) K/mm3. Baso # (Auto) 0.04 (0.01-0.08) K/ mm3. Manual Slide Review Normal smear. Blood Type A POSITIVE. Gel Antibody Screen Negative. Med Orders - Current: Current Medications. Ephedrine Sulfate (Ephedrine Sulfate) 5 mg IVPUSH ASDIRECTED PRN. PRN Reason: Hypotension. Fentanyl (Sublimaze) 100 mcg EPIDUR Q3H PRN. PRN Reason: Pain. Last Admin: 09/08/18 16:45 Dose: 100 mcg. Fentanyl/Bupivacaine HCl (Fentanyl- Bupiv-Ns 2 Mcg/Ml-0.125%) 100 ml EP ASDIRECTED DEBORAH. Last Admin: 09/08/18 16: 44 Dose: 100 ml. Lactated Ringer's (Ringers, Lactated) 1,000 mls @ 100 mls/ hr IV ASDIRECTED DEBORAH. Last Admin: 09/08/18 17:06 Dose: 100 mls/hr. Oxytocin/ Lactated Ringer's (Pitocin In Lr 10 Units/1,000 Ml) 10 unit in 1,000 mls @ 12 mls/hr IV TITRATE DEBORAH; Protocol. Last Titration: 09/08/18 17:40 Dose: 14 munits/min, 84 mls/hr. Oxytocin/Lactated Ringer's (Pitocin In Lr 10 Units/1, 000 Ml) 10 unit in 1,000 mls @ 500 mls/hr IV .CONTINUOUS DEBORAH. Phenylephrine HCl 1 mg/ Sodium (Chloride) 10.1 mls @ 1 mls/sec IV TITRATE DEBORAH; Protocol. Sodium Chloride (Saline Flush) 10 ml FLUSH ASDIRECTED PRN. PRN Reason: Keep Vein Open. - Exam. General: Alert, Oriented. HEENT: Pupils Equal, Mucous Membr. Moist/[place]. Lungs: Clear to Auscultation, Normal Respiratory Effort. Cardiovascular: Regular Rate, Regular Rhythm. GI/Abdominal Exam: Normal Bowel Sounds. (Female) Exam: Normal External Exam. Extremities: Normal Inspection , Normal Range of Motion, Non-Tender, No Pedal Edema, Normal Capillary Refill. Skin: Warm, Dry, Intact. Psy/Mental Status: Alert, Normal Affect, Normal Mood. - Problem List & Annotations. (1) 39 weeks gestation of . SNOMED Code(s): 78852418. Code(s): Z3A.39 - 39 WEEKS GESTATION OF Status: Acute Current Visit: Yes. (2) Normal delivery. SNOMED Code(s): 00546246, 835027611. Code(s): O80 - ENCOUNTER FOR FULL-TERM UNCOMPLICATED DELIVERY Status: Acute Current Visit: Yes. - Problem List Review. Problem List Initiated/Reviewed/Updated: No. - My Orders. Last 24 Hours: My Active Orders. 09/08/18 10:41. Patient Status [ADT] Routine. Activity as Tolerated [ RC] PFP. Communication Order [RC] ASDIRECTED. Heart Tones [RC] ASDIRECTED. Non Stress Test [RC] PER UNIT ROUTINE. Notify Provider [RC] PFP. Notify Provider [RC] PRN. Peripheral IV Care [RC] . DIRECTED. Vital Signs [RC] PER UNIT ROUTINE. RAPID PLASMA REAGIN,RPR [CHEM] Routine. Sodium Chloride 0.9% [Saline Flush] 10 ml FLUSH ASDIRECTED PRN. Electronic Heart Tones Ext w TOCO [WOMSER] Routine. Electronic Heart Tones Internal [WOMSER] Per Unit Routine. Peripheral IV Insertion Adult [OM.PC] Routine. Resuscitation Status Routine. 09/08/18 10:45. Lactated Ringers [Ringers, Lactated] 1,000 ml IV ASDIRECTED. Oxytocin/Lactated Ringers [Pitocin in LR 10 Units/1,000 ML] 10 unit in 1,000 ml IV .CONTINUOUS. Oxytocin/Lactated Ringers [ Pitocin in LR 10 Units/1,000 ML] 10 unit in 1,000 ml IV TITRATE. 09/08/18 Lunch. Regular Diet [DIET]. - Plan. Plan:: Plan labor and delivery Diagnosis: Stroke: No - Discharge Data Discharge Date: 09/10/18 Discharge Disposition: Home, Self-Care 01 Condition: Good - Discharge Diagnosis/Problem(s) (1) 39 weeks gestation of SNOMED Code(s): 24681595 ICD Code: Z3A.39 - 39 WEEKS GESTATION OF Status: Acute Current Visit: Yes (2) Normal delivery SNOMED Code(s): 62326634, 661118780 ICD Code: O80 - ENCOUNTER FOR FULL-TERM UNCOMPLICATED DELIVERY Status: Acute Current Visit: Yes - Patient Summary/Data Complications: none Consults: none Hospital Course: uneventful - Patient Instructions Diet: Usual Diet as Tolerated Driving: Do Not Drive (x48 hrs) Showering/Bathing: May Shower Notify Provider of: Fever, Increased Pain, Swelling and Redness, Drainage, Nausea and/or Vomiting - Discharge Plan *PRESCRIPTION DRUG MONITORING PROGRAM REVIEWED*: Not Applicable *COPY OF PRESCRIPTION DRUG MONITORING REPORT IN PATIENT GAL: Not Applicable Prescriptions/Med Rec: Acetaminophen [Tylenol] 650 mg PO Q6H #50 capsule Docusate Sodium [Dulcolax Stool Softener] 100 mg PO BID #50 capsule Ibuprofen 200 - 600 mg PO Q6H #50 tablet Home Medications: Home Meds PNV95/Ferrous Fumarate/FA [ Tablet] 1 tab PO DAILY 11/19/16 [History] Acetaminophen [Tylenol] 650 mg PO Q6H PRN #0 tablet 11/20/16 [Rx] Benzocaine/Menthol [Dermoplast Pain Relief [place]] 1 spray TOP ASDIRECTED PRN #0 canister 11/20/16 [Rx] Docusate Sodium [Colace] 100 mg PO BID PRN #0 cap 11/20/16 [Rx] Ibuprofen [IJD: Ibuprofen] 200 - 600 mg PO Q6H PRN #0 tablet 11/20/16 [Rx] Simethicone 80 mg PO Q4H PRN #0 tab.chew 11/20/16 [Rx] Witch Darlin [Tucks] 1 pad TOP ASDIRECTED PRN #0 pad 11/20/16 [Rx] Acetaminophen [Tylenol] 650 mg PO Q6H #50 capsule 09/10/18 [Rx] Benzocaine/Menthol [Dermoplast Pain Relief [place]] 1 spray TOP ASDIRECTED PRN canister 09/10/18 [Rx] Docusate Sodium [Dulcolax Stool Softener] 100 mg PO BID #50 capsule 09/10/18 [Rx ] Ibuprofen 200 - 600 mg PO Q6H #50 tablet 09/10/18 [Rx] Lanolin [Lansinoh HPA] 1 applic TOP ASDIRECTED PRN tube 09/10/18 [Rx] Witch Darlin [Tucks] 1 pad TOP ASDIRECTED PRN pad 09/10/18 [Rx] Referrals: Donn Choe MD [Primary Care Provider] - (See Dr Brito in two weeks) - Discharge Summary/Plan Comment DC Time >30 min.: No - Patient Data Vitals - Most Recent: Last Vital Signs Temp 98.4 F 09/10/18 04:06 Pulse 69 09/10/18 04:06 Resp 16 09/10/18 04:06 BP 102/57 L 09/10/18 04:06 Pulse Ox 95 09/10/18 04:06 Weight - Most Recent: 184 lb I&O - Last 24 hours: Intake & Output 09/09/18 09/10/18 09/10/18 22:59 06:59 14:59 Intake Total 320 Balance 320 Med Orders - Current: Current Medications Acetaminophen (Tylenol) 650 mg PO Q4H PRN PRN Reason: mild pain or fever Benzocaine/Menthol (Dermoplast Pain Relief [place]) 0 gm TOP ASDIRECTED PRN PRN Reason: Perineal Comfort Measure Docusate Sodium (Colace) 100 mg PO BID PRN PRN Reason: Constipation Emollient Ointment (Lansinoh Hpa) 0 gm TOP ASDIRECTED PRN PRN Reason: Sore Nipples Ibuprofen (Motrin) 600 mg PO Q4H PRN PRN Reason: Mild pain or fever Last Admin: 09/10/18 08:01 Dose: 600 mg Witch Darlin (Tucks) 1 pad TOP ASDIRECTED PRN PRN Reason: Hemorrhoid pain Discontinued Medications Bupivacaine HCl (Sensorcaine-Mpf 0.25%) 10 ml .ROUTE .STK-MED ONE Stop: 09/08/18 22:01 Ephedrine Sulfate (Ephedrine Sulfate) 5 mg IVPUSH ASDIRECTED PRN PRN Reason: Hypotension Fentanyl (Sublimaze) 100 mcg EPIDUR Q3H PRN PRN Reason: Pain Last Admin: 09/08/18 16:45 Dose: 100 mcg Fentanyl/Bupivacaine HCl (Gnfhwqaw-Coqpd-Di 2 Mcg/Ml-0.125%) 100 ml EP ASDIRECTED DEBORAH Last Admin: 09/08/18 16:44 Dose: 100 ml Lactated Ringer's (Ringers, Lactated) 1,000 mls @ 100 mls/hr IV ASDIRECTED DEBORAH Last Admin: 09/08/18 17:06 Dose: 100 mls/hr Oxytocin/Lactated Ringer's (Pitocin In Lr 10 Units/1,000 Ml) 10 unit in 1,000 mls @ 12 mls/hr IV TITRATE DEBORAH; Protocol Last Titration: 09/08/18 18:53 Dose: 16 munits/min, 96 mls/hr Oxytocin/Lactated Ringer's (Pitocin In Lr 10 Units/1,000 Ml) 10 unit in 1,000 mls @ 500 mls/hr IV .CONTINUOUS DEBORAH Phenylephrine HCl 1 mg/ Sodium (Chloride) 10.1 mls @ 1 mls/sec IV TITRATE DEBORAH; Protocol Oxytocin 20 unit/ Lactated (Ringer's) 1,002 mls @ 751.5 mls/hr IV TITRATE DEBORAH Last Admin: 09/08/18 20:00 Dose: 250 munits/min, 999 mls/hr Lidocaine/Epinephrine (Xylocaine-Mpf 1.5% W/Epinephrine 1:200,000) 5 ml .ROUTE .STK-MED ONE Stop: 09/08/18 22:01 Sodium Chloride (Saline Flush) 10 ml FLUSH ASDIRECTED PRN PRN Reason: Keep Vein Open
[2018-09-10 09:50] VITALS: BP 117/71
== END 2018-09-10 10:10 | disposition home or self-care (01) | DRG 560 ==
LOC: JD.OBCHECK 10:11 → JD.OB 10:13 → JD.OBCHECK 10:41 → OBSVTOIN 19:10 → JD.OB 19:11
PROVIDERS: ADMIT Obstetrics & Gynecology; ATTEND Obstetrics & Gynecology
PROC: 10907ZC Drainage of Amniotic Fluid, Therapeutic from Products of Conception, Via Natural or Artificial Opening (ICD-10-PCS; principal; 2018-09-08)
PROC: 10E0XZZ Delivery of Products of Conception, External Approach (ICD-10-PCS; principal; 2018-09-08)
PROC: 3E0R3BZ Introduction of Anesthetic Agent into Spinal Canal, Percutaneous Approach (ICD-10-PCS; 2018-09-08)
PROC: 00HU33Z Insertion of Infusion Device into Spinal Canal, Percutaneous Approach (ICD-10-PCS; 2018-09-08)
DX: O99.284 Endocrine, nutritional and metabolic diseases complicating childbirth (principal); O69.89X0 Labor and delivery complicated by other cord complications, not applicable or unspecified; Z37.0 Single live birth; Z3A.39 39 weeks gestation of pregnancy; O99.344 Other mental disorders complicating childbirth; E05.90 Thyrotoxicosis, unspecified without thyrotoxic crisis or storm; F41.9 Anxiety disorder, unspecified; F32.9 Major depressive disorder, single episode, unspecified; O99.52 Diseases of the respiratory system complicating childbirth; O99.62 Diseases of the digestive system complicating childbirth; J45.909 Unspecified asthma, uncomplicated; K21.9 Gastro-esophageal reflux disease without esophagitis; O99.354 Diseases of the nervous system complicating childbirth; G43.909 Migraine, unspecified, not intractable, without status migrainosus; O75.89 Other specified complications of labor and delivery; M41.9 Scoliosis, unspecified; Z88.5 Allergy status to narcotic agent; Z88.8 Allergy status to other drugs, medicaments and biological substances
CPT/HCPCS: 01967; 36415; 51701; 59025; 59409; 85025; 86850; 86900; 86901; A9270-GY; J2590; J3010; J3490; J7120

== ENCOUNTER 2020-04-16 12:18 | Emergency (ER) | payer BC ==
[2020-04-16 12:24] VITALS: BP 110/71; PULSE 87
--- NOTE | 2020-04-16 12:46 | EDM.PDOC ---
ED HPI GENERAL MEDICAL PROBLEM - General Chief Complaint: Bite:Animal, Insect Stated Complaint: STUNG BY WASP Time Seen by Provider: 04/16/20 12:25 Source of Information: Reports: Patient, RN Notes Reviewed History Limitations: Reports: No Limitations - History of Present Illness INITIAL COMMENTS - FREE TEXT/NARRATIVE: Patient is a 29-year-old female who presents to the ED for the evaluation of a wasp sting. The patient states that she was stung by wasp about 1/2-hour prior to arrival to the ER. She did take 25 mg of Benadryl at the onset of the sting. This was on the patient's plantar aspect of the right great toe, between the PIP and DIP joints. She notes there is a little bit of swelling in this area, and she states that she has an allergy to bee stings, so she feels like her throat is getting a little bit tight. She states she was not wheezing, but did use her albuterol inhaler at home, and this seemed to help. She denies any other sick-like symptoms prior to this, she says she was feeling generally well. Right Feet Pain Score (Numeric/FACES): 4 - Related Data Allergies Allergy/AdvReac Type Severity Reaction Status Date / Time codeine AdvReac Severe Seizure Verified 04/16/20 12:28 hydrocodone [From Vicodin] AdvReac Severe Seizure Verified 04/16/20 12:28 promethazine [From Phenergan] AdvReac Severe Seizure Verified 04/16/20 12:28 Home Meds: Home Meds Sertraline [Zoloft] 100 mg PO DAILY 04/16/20 [History] predniSONE 20 mg PO ASDIRECTED #15 tab 04/16/20 [Rx] Past Medical History Cardiovascular History: Reports: Other (See Below) Other Cardiovascular History: SVT Respiratory History: Reports: Asthma Gastrointestinal History: Reports: GERD, Other (See Below) Other Gastrointestinal History: ulcer CHECK SERVICES CLERK History: Reports: Ectopic , , Spontaneous , Other (See Below) Other CHECK SERVICES CLERK History: spontaneous AB X10. History of PTL Neurological History: Reports: Headaches, Chronic Psychiatric History: Reports: Anxiety, Depression Endocrine/Metabolic History: Reports: Hyperthyroidism Oncologic (Cancer) History: Reports: Other (See Below) Other Oncologic History: CERVICAL LEAP PROCEDURE - Past Surgical History Cardiovascular Surgical History: Reports: None Respiratory Surgical History: Reports: None GI Surgical History: Reports: None Endocrine Surgical History: Reports: None Social & Family History - Family History Family Medical History: Noncontributory - Tobacco Use Smoking Status *Q: Current Every Day Smoker Years of Tobacco use: 10 Packs/Tins Daily: 0.5 - Caffeine Use Caffeine Use: Reports: None - Recreational Drug Use Recreational Drug Use: No ED ROS GENERAL - Review of Systems Review Of Systems: Comprehensive ROS is negative, except as noted in HPI. ED EXAM, ANIMAL BITE - Physical Exam Exam: See Below Exam Limited By: No Limitations General Appearance: Alert, WD/WN, No Apparent Distress Throat/Mouth: Normal Inspection, Normal Lips, Normal Teeth, Normal Gums, Normal Oropharynx, Normal Voice, No Airway Compromise Respiratory/Chest: No Respiratory Distress, Lungs Clear, Normal Breath Sounds, No Accessory Muscle Use, Chest Non-Tender Cardiovascular: Normal Peripheral Pulses, Regular Rate, Rhythm, No Murmur Peripheral Pulses: 2+: Radial (L), Radial (R) Neurological: Alert, Oriented, Normal Cognition, No Motor/Sensory Deficits Psychiatric: Normal Affect, Normal Mood Skin Exam: Normal Color, Warm/Dry Course - Vital Signs Last Recorded V/S: Last Vital Signs Temp 97.1 F 04/16/20 12:23 Pulse 87 04/16/20 12:23 Resp 20 04/16/20 12:23 BP 110/71 04/16/20 12:23 Pulse Ox 100 04/16/20 12:23 - Re-Assessments/Exams Free Text/Narrative Re-Assessment/Exam: 04/16/20 12:47 Presents to the ED for the evaluation of her wasp sting. She is already taken 25 mg of Benadryl prior to coming to the ER. The patient is not having any respiratory distress, I have directed her to go home, take another 25 mg when she gets home, and I provided with a prescription for prednisone, and have directed her to take her albuterol as needed for wheezing. She is understanding of the plan of care, and agrees to comply. 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 You were not having a full anaphylactic reaction, you can be treated with outpatient management at this time. You have been given a prescription for prednisone, please follow the instructions on the prescription, 1 tablet 2 times a day for x5 days, then 1 tablet once a day x5 days. You may also take [id number] Pepcid, per label instructions, usually 1 tablet daily. You may also take 25 to 50 mg Benadryl every 4 hours as needed for further symptomatic relief. You may take your albuterol inhaler 1 to 2 puffs every 4 hours as needed for further wheezing, or as directed by your primary doctor. Apply ice to the area of the toe, where the wasp stung you, to help relieve some of the swelling as well. Please return to the ER at any time if symptoms change or worsen. Sepsis Event Note (ED) - Evaluation Sepsis Screening Result: No Definite Risk - Focused Exam Vital Signs: Vital Signs Temp Pulse Resp BP Pulse Ox 04/16/20 12:23 97.1 F 87 20 110/71 100
== END 2020-04-16 13:12 | disposition home or self-care (01) ==
LOC: JD.ED 12:18
DX: T63.461A Toxic effect of venom of wasps, accidental (unintentional), initial encounter (principal); F41.9 Anxiety disorder, unspecified; F32.9 Major depressive disorder, single episode, unspecified; F17.210 Nicotine dependence, cigarettes, uncomplicated; Z88.5 Allergy status to narcotic agent; Z88.8 Allergy status to other drugs, medicaments and biological substances; Z79.899 Other long term (current) drug therapy
CPT/HCPCS: 99282

== ENCOUNTER → 2020-06-07 | Day surgery (SDC) | payer BC ==
[~2020-06-07] MED LIST: Lactated Ringers 1,000 ML IV SCH; Lidocaine 1%/Sod Bicarbonate in NS 8.4% 1 ML Syringe IDERM PRN; Midazolam 1 MG/ML 2 ML SDV ONE; Propofol 200 MG/20 ML SDV ONE; Sodium Chloride 0.9% 10 ML Syringe FLUSH PRN; fentaNYL 100 MCG/2 ML SDV ONE
--- NOTE | 2020-06-07 09:19 | PCM.PREANE ---
Preanesthetic Assessment - Anesthesia/Transfusion/Family Hx Anesthesia History: Prior Anesthesia Without Reaction Family History of Anesthesia Reaction: No Transfusion History: No Prior Transfusion(s) Intubation History: Unknown - Review of Systems General: No Symptoms Pulmonary: Other (asthma, inhaler 2x/week, current smoker) Cardiovascular: Other (hx of SVT, asymptomatic for 5 years, ) Gastrointestinal: Other (GERD, PUD) Neurological: Headache Other: Reports: Depression, Anxiety - Physical Assessment NPO Status Date: 06/07/20 NPO Status Time: 04:15 Vital Signs: Last Vital Signs Temp 37.2 C 06/07/20 09:06 Pulse 98 06/07/20 09:06 Resp 16 06/07/20 09:06 BP 113/72 06/07/20 09:06 Pulse Ox 99 06/07/20 09:06 ASA Class: 2 Mental Status: Alert & Oriented x3 Airway Class: Mallampati = 2 Dentition: Reports: Normal Dentition Thyro-Mental Finger Breadths: 3 Mouth Opening Finger Breadths: 3 ROM/Head Extension: Full Lungs: Clear to Auscultation, Normal Respiratory Effort Cardiovascular: Regular Rate, Regular Rhythm - Lab Values: Laboratory Last Values Urine HCG, Qual Negative (NEGATIVE) 06/07/20 08:45 - Allergies Allergies/Adverse Reactions: Allergies Allergy/AdvReac Type Severity Reaction Status Date / Time codeine AdvReac Severe Seizure Verified 06/07/20 09:06 hydrocodone [From Vicodin] AdvReac Severe Seizure Verified 06/07/20 09:06 promethazine [From Phenergan] AdvReac Severe Seizure Verified 06/07/20 09:06 - Blood Blood Available: No Product(s) Available: None - Anesthesia Plan Pre-Op Medication Ordered: None - Acknowledgements Anesthesia Type Planned: MAC Pt an Appropriate Candidate for the Planned Anesthesia: Yes Alternatives and Risks of Anesthesia Discussed w Pt/Guardian: Yes Pt/Guardian Understands and Agrees with Anesthesia Plan: Yes PreAnesthesia Questionnaire HEENT History: Reports: Impaired Vision, Sinusitis Cardiovascular History: Reports: Other (See Below) Other Cardiovascular History: SVT Respiratory History: Reports: Asthma, Other (See Below) Other Respiratory History: cough, familial iodiopathic pulmonary fibrosis Gastrointestinal History: Reports: GERD, Other (See Below) Other Gastrointestinal History: ulcer Genitourinary History: Reports: Other (See Below) Other Genitourinary History: renal impairment, urgency, UTI MANAGER ALLIANCE History: Reports: Ectopic , , 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 abnormal uterine bleeding, menorrhagia, yeast infection, labor, cervical conization, diagnostic laparoscopy Neurological History: Reports: Headaches, Chronic, Seizure Psychiatric History: Reports: Anxiety, Depression Endocrine/Metabolic History: Reports: Hyperthyroidism, Hypothyroidism Hematologic History: Reports: None Immunologic History: Reports: None Oncologic (Cancer) History: Reports: None, Other (See Below) Dermatologic History: Reports: Other (See Below) Other Dermatologic History: choroidal nevus, rash, unwanted hair - Infectious Disease History Infectious Disease History: Reports: None - Past Surgical History Cardiovascular Surgical History: Reports: None Respiratory Surgical History: Reports: None GI Surgical History: Reports: EGD Endocrine Surgical History: Reports: None Neurological Surgical History: Reports: None Musculoskeletal Surgical History: Reports: Other (See Below) Other Musculoskeletal Surgeries/Procedures:: foot surgery Oncologic Surgical History: Reports: None - SUBSTANCE USE Tobacco Use Status *Q: Current Every Day Tobacco User Recreational Drug Use History: No - HOME MEDS Home Medications: Home Meds Sertraline [Zoloft] 100 mg PO DAILY 04/16/20 [History] Ascorbic Acid [Vitamin C] 500 mg PO DAILY 06/06/20 [History] Butalb/Acetaminophen/Caffeine [Fodpff-Ctomwbxe-Seko 50-325-40] 1 - 2 tab PO Q8H PRN 06/06/20 [History] levonorgestreL [Mirena] 1 device VAG ASDIRECTED 06/06/20 [History] - CURRENT (IN HOUSE) MEDS Current Meds: Current Medications Lactated Ringer's (Ringers, Lactated) 1,000 mls @ 125 mls/hr IV ASDIRECTED DEBORAH Stop: 06/07/20 23:00 Last Admin: 06/07/20 09:03 Dose: 125 mls/hr Documented by: Lidocaine/Sodium Bicarbonate (Buffered Lidocaine 1% In Ns 8.4%) 0.25 ml IDERM ONETIME PRN PRN Reason: Prior to IV Start Stop: 06/07/20 18:00 Last Admin: 06/07/20 09:03 Dose: 0.25 ml Documented by: Sodium Chloride (Saline Flush) 10 ml FLUSH ASDIRECTED PRN PRN Reason: Keep Vein Open Stop: 06/07/20 18:00
--- NOTE | 2020-06-07 10:22 | PCM48HPAN ---
Post Anesthesia Note - EVALUATION WITHIN 48HRS OF ANESTHETIC Vital Signs in Normal Range: Yes Patient Participated in Evaluation: Yes Respiratory Function Stable: Yes Airway Patent: Yes Cardiovascular Function Stable: Yes Hydration Status Stable: Yes Pain Control Satisfactory: Yes Nausea and Vomiting Control Satisfactory: Yes Mental Status Recovered: Yes Vital Signs: Last Vital Signs Temp 37.2 C 06/07/20 09:06 Pulse 98 06/07/20 09:06 Resp 16 06/07/20 09:06 BP 113/72 06/07/20 09:06 Pulse Ox 99 06/07/20 09:06
--- NOTE | 2020-06-07 10:32 | PCM.PRNOTE ---
- Free Text/Narrative Note: Date: 06/07/2020 Procedure: diagnostic EGD and colonoscopy History: choroid nevus noted on ophthalmologic exam, question of familial polyposis. Surgeon: Daniel Tian MD Findings: stomach had a moderate amount of opaque yellow fluid within. Distal esophagus appeared to have some inflammatory change. The small polyps identified between the mid-sigmoid colon and distal rectum. All were biopsied with forceps. Detailed Report: The patient was taken to the endoscopy suite and placed in left lateral decubitus position. Time out was performed and monitored anesthesia care initiated. A bite block was placed. The endoscope was inserted orally and advanced to the duodenum. There was a moderate amount of opaque iszzk-yacp-mrdgtfeyh fluid in the stomach. The duodenum appeared normal. The stomach appeared normal, without evidence of gastritis, ulcer, or hiatal hernia. The Z line appeared normal, but there appeared to be some chronic inflammatory change and nodularity in the distal esophagus. No other pathology was noted. Air was suctioned from the stomach and the scope was withdrawn. Next, colonoscopy was performed. The anus appeared normal. Digital rectal exam was unremarkable.The colonoscope was inserted and advanced to the cecum. Prep was excellent. The appendiceal orifice was visualized. The scope was slowly withdrawn and mucosal surfaces carefully inspected. No abnormality was noted until the sigmoid. A small hyperplastic-appearing polyp was identified and removed with forceps. A similar lesion was noted at the rectosigmoid junction and removed with forceps. On retroflexion in the rectum, a small pedunculated polyp was noted just proximal to the sphincter complex. This was removed with fo rceps and the tissue base was fulgurated. Air was suctioned prior to withdrawal of the scope. The patient tolerated the procedure well.
[2020-06-07 10:56] VITALS: BP 109/57; PULSE 90
== END | disposition home or self-care (01) ==
LOC: JD.SDS 08:40
PROVIDERS: ATTEND Surgery
DX: Z12.11 Encounter for screening for malignant neoplasm of colon (principal); Z80.0 Family history of malignant neoplasm of digestive organs; K21.9 Gastro-esophageal reflux disease without esophagitis; K63.5 Polyp of colon; A63.0 Anogenital (venereal) warts; K62.1 Rectal polyp; F41.9 Anxiety disorder, unspecified; F32.9 Major depressive disorder, single episode, unspecified; J45.909 Unspecified asthma, uncomplicated; Z88.5 Allergy status to narcotic agent; Z88.8 Allergy status to other drugs, medicaments and biological substances; Z79.899 Other long term (current) drug therapy; Z87.891 Personal history of nicotine dependence; E03.9 Hypothyroidism, unspecified
CPT/HCPCS: 43239; 45380; 81025; J2250; J2704; J3010; J7120; 00813

== ENCOUNTER 2020-09-02 07:18 | Day surgery (SDC) | payer BC ==
[~2020-09-02 07:18] MED LIST changes: +Ketorolac 30 MG/ML SDV ONE; +Lidocaine 1% 4 ML ONE; -Propofol 200 MG/20 ML SDV ONE; +ceFAZolin 1 GM Vial ONE; -fentaNYL 100 MCG/2 ML SDV ONE; +fentaNYL 250 MCG/5 ML SDV ONE
[2020-09-02] MEDS ORDERED: Rocuronium 50 MG/5 ML Vial ONE (07:19)
[2020-09-02] MEDS ORDERED: Propofol 200 MG/20 ML SDV ONE (07:19)
[2020-09-02] MEDS ORDERED: Ondansetron 4 MG/2 ML SDV ONE (07:19)
[2020-09-02] MEDS ORDERED: Lidocaine 1% with EPINEPHrine 1:100,000 20 ML MDV ONE (07:20)
[2020-09-02] MEDS ORDERED: Sodium Chloride 0.9% 50 ML SDV ONE (07:20)
--- NOTE | 2020-09-02 07:44 | PCM.PREANE ---
Preanesthetic Assessment - Procedure Proposed Procedure: TVH - Anesthesia/Transfusion/Family Hx Anesthesia History: Prior Anesthesia Without Reaction Family History of Anesthesia Reaction: No Transfusion History: No Prior Transfusion(s) Intubation History: Unknown - Review of Systems General: No Symptoms Pulmonary: No Symptoms Cardiovascular: No Symptoms Gastrointestinal: Nausea Neurological: Seizure ( 2002 allergic reaction) Other: Reports: None - Physical Assessment NPO Status Date: 09/01/20 NPO Status Time: 00:00 Height: 1.8 m Weight: 68 kg ASA Class: 2 Mental Status: Alert & Oriented x3 Airway Class: Mallampati = 1 Dentition: Reports: Normal Dentition Thyro-Mental Finger Breadths: 3 Mouth Opening Finger Breadths: 3 ROM/Head Extension: Full Lungs: Clear to Auscultation, Normal Respiratory Effort Cardiovascular: Regular Rate, Regular Rhythm - Lab Values: Laboratory Last Values Urine HCG, Qual Negative (NEGATIVE) 09/02/20 07:20 - Allergies Allergies/Adverse Reactions: Allergies Allergy/AdvReac Type Severity Reaction Status Date / Time codeine AdvReac Severe Seizure Verified 09/01/20 17:02 hydrocodone [From Vicodin] AdvReac Severe Seizure Verified 09/01/20 17:02 promethazine [From Phenergan] AdvReac Severe Seizure Verified 09/01/20 17:02 - Anesthesia Plan Pre-Op Medication Ordered: None - Acknowledgements Anesthesia Type Planned: General Anesthesia Pt an Appropriate Candidate for the Planned Anesthesia: Yes Alternatives and Risks of Anesthesia Discussed w Pt/Guardian: Yes Pt/Guardian Understands and Agrees with Anesthesia Plan: Yes PreAnesthesia Questionnaire HEENT History: Reports: Allergic Rhinitis, Impaired Vision, Sinusitis Cardiovascular History: Reports: Other (See Below) Other Cardiovascular History: SVT Respiratory History: Reports: Asthma Other Respiratory History: cough, familial iodiopathic pulmonary fibrosis Gastrointestinal History: Reports: GERD, Other (See Below) Other Gastrointestinal History: ulcer Genitourinary History: Reports: Other (See Below) Other Genitourinary History: renal impairment, urgency, UTI CASE CONSULTANT History: Reports: Ectopic , , Spontaneous , Other (See Below) Other OB/BYN History: spontaneous AB X10, abnormal uterine bleeding, menorrhagia, cervical conization, dx laparoscopy Neurological History: Reports: Headaches, Chronic, Migraines, Seizure Psychiatric History: Reports: Anxiety, Depression Endocrine/Metabolic History: Reports: Hyperthyroidism, Hypothyroidism Hematologic History: Reports: None Immunologic History: Reports: None Oncologic (Cancer) History: Reports: Other (See Below) Other Oncologic History: CERVICAL LEAP PROCEDURE Dermatologic History: Reports: Other (See Below) Other Dermatologic History: choroidal nevus, rash, unwanted hair - Infectious Disease History Infectious Disease History: Reports: None - Past Surgical History HEENT Surgical History: Reports: None Cardiovascular Surgical History: Reports: None Respiratory Surgical History: Reports: None GI Surgical History: Reports: None Male Surgical History: Reports: None Endocrine Surgical History: Reports: None Neurological Surgical History: Reports: None Musculoskeletal Surgical History: Reports: Other (See Below) Other Musculoskeletal Surgeries/Procedures:: foot surgery Oncologic Surgical History: Reports: None - SUBSTANCE USE Tobacco Use Status *Q: Current Every Day Tobacco User Tobacco Use Within Last Twelve Months: Cigarettes Recreational Drug Use History: No - HOME MEDS Home Medications: Home Meds Sertraline [Zoloft] 100 mg PO DAILY 04/16/20 [History] Ascorbic Acid [Vitamin C] 500 mg PO DAILY 06/06/20 [History] Butalb/Acetaminophen/Caffeine [Yjyljq-Azwjutwo-Xakj 50-325-40] 1 - 2 tab PO Q8H PRN 06/06/20 [History] Albuterol Sulfate [Albuterol Sulfate HFA] 1 puff INH Q4H PRN 09/01/20 [History] - CURRENT (IN HOUSE) MEDS Current Meds: Current Medications Lactated Ringer's (Ringers, Lactated) 1,000 mls @ 125 mls/hr IV ASDIRECTED DEBORAH Lidocaine/Sodium Bicarbonate (Buffered Lidocaine 1% In Ns 8.4%) 0.25 ml IDERM ONETIME PRN PRN Reason: Prior to IV Start Sodium Chloride (Saline Flush) 10 ml FLUSH ASDIRECTED PRN PRN Reason: Keep Vein Open Discontinued Medications Cefazolin Sodium (Ancef) Confirm Administered Dose 2 gm .ROUTE .STK-MED ONE Stop: 09/02/20 07:19 Fentanyl (Sublimaze) Confirm Administered Dose 250 mcg .ROUTE .STK-MED ONE Stop: 09/02/20 07:19 Lidocaine HCl (Xylocaine-Mpf 1%) Confirm Administered Dose 4 mls @ as directed .ROUTE .STK-MED ONE Stop: 09/02/20 07:19 Ketorolac Tromethamine (Toradol) Confirm Administered Dose 30 mg .ROUTE .STK-MED ONE Stop: 09/02/20 07:19 Lidocaine/Epinephrine (Xylocaine 1% With Epinephrine 1:100,000) Confirm Administered Dose 20 ml .ROUTE .STK-MED ONE Stop: 09/02/20 07:21 Midazolam HCl (Versed 1 Mg/Ml) Confirm Administered Dose 2 mg .ROUTE .STK-MED ONE Stop: 09/02/20 07:19 Ondansetron HCl (Zofran) Confirm Administered Dose 4 mg .ROUTE .STK-MED ONE Stop: 09/02/20 07:20 Propofol (Diprivan 20 Ml) Confirm Administered Dose 200 mg .ROUTE .STK-MED ONE Stop: 09/02/20 07:20 Rocuronium Hosmer (Zemuron) Confirm Administered Dose 50 mg .ROUTE .STK-MED ONE Stop: 09/02/20 07:20 Sodium Chloride (Normal Saline) Confirm Administered Dose 50 ml .ROUTE .STK-MED ONE Stop: 09/02/20 07:21
[2020-09-02] MEDS ORDERED: Albuterol 0.083% 2.5 MG/3 ML Neb Soln NEB SCH (07:48)
[2020-09-02] MEDS ORDERED: Dexamethasone 4 MG/ML 5 ML MDV ONE (08:11)
[2020-09-02] MEDS ORDERED: HYDROmorphone 0.5 MG/0.5 ML Syringe ONE ×2 (08:31)
[2020-09-02] MEDS ORDERED: Lactated Ringers 1,000 ML ONE (08:34)
[2020-09-02] MEDS ORDERED: ePHEDrine 50 MG/ML SDV ONE (08:36)
[2020-09-02] MEDS ORDERED: fentaNYL 100 MCG/2 ML SDV ONE ×3 (09:10→09:19)
--- NOTE | 2020-09-02 09:17 | PCM.OPNOTE ---
- General Post-Op/Procedure Note Date of Surgery/Procedure: 09/02/20 Operative Procedure(s): Total vaginal hysterectomy bilateral salpingectomy Pre Op Diagnosis: Menorrhagia, abnormal uterine bleeding Post-Op Diagnosis: Same Anesthesia Technique: General ET Tube Primary Surgeon: Donn Choe Secondary Surgeon: Len Brito Anesthesia Provider: Neri Hugo Rebar Worker: Doug Mccann Reason Rebar Worker Was Necessary: Retraction, decrease comorbidity and mortality Role of Rebar Worker: Retraction, decrease comorbidity and mortality Fluid Replacement, Intraop: 1,500 EBL in mLs: 75 Drain/Tube Comments:: none Complications: None Condition: Good Free Text/Narrative:: Patient was transported to the operating room placed under general anesthesia with endotracheal intubation in the low dorsolithotomy position. Prepared and draped in a sterile fashion. Patient had voided prior to coming to the operating room. SCDs in place and functioning prior to surgery. Ancef 2 g given intravenously prior to surgery. Examination under anesthesia revealed anterior uterus no adnexal masses palpated. Timeout performed confirming name date of and procedures total vaginal hysterectomy bilateral salpingectomy (removal of one or both ovaries if indicated ) (neither ovary removed), patient having been prepared and draped in a sterile fashion 20 mL of 0.25 lidocaine with epinephrine injected in multiple confluent areas around the cervix. Posterior colpotomy was performed without difficulty after massaging the lidocaine s olution into the areas of injection. Utilizing Enseal the left uterosacral cardinal ligament bundle crossclamped activated and incised same procedure carried out on the opposite side proceeding cephalad uterine vasculature on the right side was crossclamped Enseal activated and incised same procedure carried out on the left side. Proceeding cephalad crossclamping activating and incising until the uterus was removed without difficulty. Confirming IUD intrauterine after completion of the case. The right tube grasped with Que clamp and crossclamping the mesosalpinx the right fallopian tube removed. Same procedure carried out on the left side removing the left fallopian tube. Neither ovary was removed. Both ovaries appeared normal. Sponge needle pack instrument count correct x2 and the posterior cuff was closed with a running locking suture of 0 Monocryl for the posterior cuff the anterior cuff was then approximated to the posterior cuff utilizing 0 Monocryl running locking suture. There was no bleeding at the end of the procedure patient tolerated procedure well and transferred to postanesthesia care unit in satisfactory condition. No blood transfusions were required none are anticipated. I talked with her all questions answered his voiced satisfaction.
[2020-09-02] MEDS ORDERED: fentaNYL 100 MCG/2 ML SDV IVPUSH PRN (09:23)
--- NOTE | 2020-09-02 09:24 | PCM.POSTAN ---
POST ANESTHESIA ASSESSMENT - MENTAL STATUS Mental Status: Alert, Oriented - VITAL SIGNS Vital Signs: Last Vital Signs Temp 36.8 C 09/02/20 07:15 Pulse 82 09/02/20 07:15 Resp 16 09/02/20 07:15 BP 128/79 09/02/20 07:15 Pulse Ox 100 09/02/20 07:15 - RESPIRATORY Respiratory Status: Respiratory Rate WNL, Airway Patent, O2 Saturation Stable, Supplemental Oxygen - CARDIOVASCULAR CV Status: Pulse Rate WNL, Blood Pressure Stable - GASTROINTESTINAL GI Status: No Symptoms - PAIN Pain Score: 5 - POST OP HYDRATION Hydration Status: Adequate & Stable
[2020-09-02] MEDS ORDERED: traMADol 50 MG Tab PO ONE (10:05)
--- NOTE | 2020-09-02 11:26 | PCM48HPAN ---
Post Anesthesia Note - EVALUATION WITHIN 48HRS OF ANESTHETIC Vital Signs in Normal Range: Yes Patient Participated in Evaluation: Yes Respiratory Function Stable: Yes Airway Patent: Yes Cardiovascular Function Stable: Yes Hydration Status Stable: Yes Pain Control Satisfactory: Yes Nausea and Vomiting Control Satisfactory: Yes Mental Status Recovered: Yes Vital Signs: Last Vital Signs Temp 36.7 C 09/02/20 11:00 Pulse 80 09/02/20 11:00 Resp 15 09/02/20 11:00 BP 106/72 09/02/20 11:00 Pulse Ox 99 09/02/20 10:30 - COMMENTS/OBSERVATIONS Free Text/Narrative:: no anesthesia complications noted
[2020-09-02 11:34] VITALS: BP 104/66; PULSE 85
--- NOTE | 2020-09-03 11:24 | PCM.SN.2 ---
- Free Text/Narrative Note: This patient had a hysterectomy done by Dr. Choe yesterday. She has been taking Fioricet with codeine which is making her quite ill. She has allergies listed to codeine, Phenergan and Vicodin. I wrote a prescription for Percocet tabs 5 325 mg strength 1-2 every 4-6 hours as needed for pain relief in combination wi th MiraLAX. 20 tablets were provided
== END 2020-09-02 11:40 | disposition home or self-care (01) ==
LOC: JD.SDS 07:18
PROVIDERS: ATTEND Obstetrics & Gynecology
DX: N87.0 Mild cervical dysplasia (principal); N72 Inflammatory disease of cervix uteri; N71.1 Chronic inflammatory disease of uterus; N80.0 Endometriosis of uterus; N83.8 Other noninflammatory disorders of ovary, fallopian tube and broad ligament; J45.909 Unspecified asthma, uncomplicated; N28.9 Disorder of kidney and ureter, unspecified; F17.210 Nicotine dependence, cigarettes, uncomplicated; Z86.69 Personal history of other diseases of the nervous system and sense organs; Z01.812 Encounter for preprocedural laboratory examination; Z20.822 Contact with and (suspected) exposure to COVID-19; E03.9 Hypothyroidism, unspecified; E05.90 Thyrotoxicosis, unspecified without thyrotoxic crisis or storm; K21.9 Gastro-esophageal reflux disease without esophagitis; Z88.5 Allergy status to narcotic agent; Z88.8 Allergy status to other drugs, medicaments and biological substances; Z79.899 Other long term (current) drug therapy; Z80.0 Family history of malignant neoplasm of digestive organs
CPT/HCPCS: 36415; 58262; 81025; 85025; 86850; 86900; 86901; A9270; J0690; J1100; J1170; J1885; J2250; J2405; J2704; J3010; J7120; 00944